=== PATIENT | male | born 1935 | race Caucasian/White ===

== ENCOUNTER → 2024-09-11 | Outpatient (CLI) | payer OTHER, SELFPAY ==
[2024-09-11 13:47] LABS: Glucose Estimated Average 131 mg/dL (80-131); Hemoglobin A1C 6.2 % Hgb (4.8-6.0)
[2024-09-11 13:49] LABS: Alanine Aminotransferase 12 U/L (10-49); Albumin, Serum 4.9 gm/dL (3.4-4.8); Alkaline Phosphatase 67 U/L (46-116); Anion Gap 10 (7-16); Aspartate Amino Transferase 15 U/L (0-34); BUN/Creatinine Ratio 20 Ratio (12-20); Bilirubin,Total 1.5 mg/dL (0.3-1.2); Blood Urea Nitrogen 28 mg/dL (9-23); Calcium 9.4 mg/dL (8.3-10.6); Calcium (Corrected) 9.4 mg/dL (8.5-10.1); Carbon Dioxide 25.1 mMol/L (20.0-31.0); Cardiac Risk Estimate 4.6 RATIO (4.0-6.7); Chloride 104 mMol/L (98-107); Cholesterol 196 mg/dL (132-200); Creatinine (Component) 1.4 mg/dL (0.6-1.3); Globulin 2.4 gm/dL (2.3-3.5); Glucose 104 mg/dL (74-106); HDL Cholesterol 43 mg/dL (40-60); LDL Cholesterol,Calculated 130 mg/dL (0-130); Osmolality,Calculated 283 (275-295); Potassium 4.3 mMol/L (3.4-5.1); Sodium 139 mMol/L (136-145); Total Protein 7.3 gm/dL (5.7-8.2); Triglycerides 116 mg/dL (30-150); eGFR 49 See Note
[2024-09-11 14:00] LABS: Creatinine MALB Rnd Ur 56 mg/dL (30-125); Microalbumin, Random Urine < 3 mg/L (0-300)
== END | disposition home or self-care (01) ==
LOC: COPL 12:16
PROVIDERS: PCP Family Medicine; Referring Provider Family Medicine; Visit Provider Family Medicine
DX: E11.40 Type 2 diabetes mellitus with diabetic neuropathy, unspecified (principal)
CPT/HCPCS: 36415; 80053; 80061; 82043; 82570; 83036

== ENCOUNTER 2025-05-27 18:44 | Inpatient (IN) | payer OTHER, MEDICARE, SELFPAY ==
[2025-05-27] VITALS (7 sets, daily range): BP systolic 101–143; BP diastolic 58–94; PULSE 85–115; RESP 14–97; TEMP 36–37; O2SAT 95–99; BMI 20.9
--- NOTE | 2025-05-27 19:08 | EKG_ITS ---
[facility] Test Date: 2025-05-27 Pat Name: ANY ROBBINS Department: Room: - Gender: Male Photograph Developer: : 1935 Requested By: Felix Campos Order Number: [id number] Reading MD: Felix Campos Measurements Intervals [place] Rate: 98 P: DC: QRS: 19 QRSD: 78 T: -42 QT: 334 QTc: 426 Interpretive Statements ATRIAL FIBRILLATION LOW QRS VOLTAGE [QRS DEFLECTION < 0.5/1.0 mV IN LIMB/CHEST LEADS] SEPTAL MYOCARDIAL INFARCTION , PROBABLY OLD [40+ ms Q WAVE IN V1/V2] Compared to ECG 04/29/2021 18:57:00 Myocardial infarct finding now present T-wave abnormality no longer present /store/S0/[id number].pdf
--- NOTE | 2025-05-27 19:09 | XR_ITS ---
Examination: CT brain head without contrast. 2-D sagittal coronal reconstructions Date and time of exam:May 27, 2025 1942 hrs. Indications: Patient fell 3 weeks ago with injury to the head followed by altered mental status CTDI: vol (mGy):53.2 DLP: (mGycm):1195 Technique: Multiple CT axial sections of the brain have been obtained, 5 mm slice thickness. Contrast has not been administered. 2-D sagittal, coronal reconstructions have been obtained Low dose protocols were performed. One or more of the following dose reduction techniques were used; automated exposure control, adjustment of the mA and/or KV according to patient size, use of iterative reconstruction technique. Findings: No significant ventricular enlargement. Intra-axial or extra-axial hemorrhage density is not seen. No mass effect or midline shift Basal cisterns are not remarkable. Fourth ventricle is midline. Cranial vault intact. Impression: Negative for acute hemorrhage, mass effect or midline shift Acute right mastoiditis Advise clinical correlation follow-up accordingly
--- NOTE | 2025-05-27 19:13 | PD.EDAMS ---
Altered Mental Status RME/HPI General Chief Complaint: Altered Mental Status Stated Complaint: AMS Time Seen by Provider: 05/27/25 19:17 Arrival date/time: 05/27/25 18:44 RME / HPI RME / HPI narrative: Mr. 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 Most history obtained from EMS patient is A&O x 1 unable to provide history, per EMS patient was found on the floor by family members, patient lives alone, family checks on him frequently and found him to be not at baseline. They did report that patient does have acute decubitus ulcers on the back, patient tachycardic, alert and oriented to self. Patient denies any pain, chest pain, shortness of breath, no lower extremity edema noted does not seem to be in any acute exacerbation of heart failure. Related Data Home Medications ?Medication ?Instructions ?Recorded ?Confirmed atorvastatin 20 mg tablet 20 mg PO QDAY 04/29/21 04/29/21 digoxin 125 mcg (0.125 mg) tablet 125 mcg PO QDAY 04/29/21 04/29/21 memantine 10 mg tablet 10 mg QDAY 04/29/21 04/29/21 metformin 1,000 mg tablet 1,000 mg PO BID 04/29/21 04/29/21 Previous Rx's ?Medication ?Instructions ?Recorded lisinopril 10 mg tablet 10 mg PO QDAY #30 tabs 05/03/21 metoprolol tartrate 50 mg tablet 50 mg PO BID #60 tabs 05/03/21 rivaroxaban 15 mg (42)-20 mg (9) See Rx Instructions PO .COMPLEX 05/03/21 tablets in a starter pack (Xarelto #51 tabs DVT-PE Treatment 30-Day Starter) Allergies Allergy/AdvReac Type Severity Reaction Status Date / Time No Known Allergies Allergy Verified 04/29/21 18:46 Review of Systems Review of Systems ROS Unobtainable: unobtainable due to mental status Past Medical History Past Medical History Comments PMH COMMENT: PMH: Positive for dementia, atrial fibrillation on Xarelto, prediabetes, hypertension, hyperlipidemia 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 Weak elderly and fragile. Conversational and non-toxic appearing. HEENT: Normocephalic, atraumatic, mucous membranes moist. Heart: Irregular rhythm and rate 105, no murmurs. Lungs: Clear to auscultation with no wheezing or crackles. Abdomen: Soft, nondistended, nontender, positive bowel sounds. ?No guarding or rebound tenderness. Neurologic: Alert and oriented x1 to self, no gross neurological deficit, and patient able to move all 4 extremities. Extremities: No edema. Significant muscle loss noted Skin: Stage III decubitus ulcer likely pressure ulcer noted near buttocks on lower back, stage I upper back. Course Course Course Narrative: 89-year-old male seen in ED 1, A&O x 1 to self most history obtained from chart review Patient noted to be tachycardic, ordered 1 L NS bolus, no signs of acute decompensated heart failure, stable on room air. Wounds examined, stage III decubitus ulcer on the lower back with some redness Workup ordered: Fingerstick blood glucose 192 CBC: WBC 13.9, RBC 3.68, hemoglobin 111.9, hematocrit 35.2, neutrophilia 11.5 neutrophil noted Coags: INR 1.1, PT 12.2, APTT 24 Blood gas: VBG pH 7.37 pCO2 35, pO2 25 CMP: Sodium 145, potassium 4.5, chloride 109, bicarb 19.6, anion gap 16, BUN 53, creatinine 1.6, GFR 41, glucose 186, osmolality 308, lactate 2.5, corrected calcium 10, phosphorus 3.4, magnesium 1.8, bilirubin 2.6, AST 45, ALT 17, alk phos 71, ammonia less than 10, troponin 0.200, Pro-Aris 0.14, TSH 2.15, free T41.45. Urine analysis shows positive nitrate, trace blood, leukocyte esterase positive, RBC 1, WBC 29, amorphous crystals present, urine sent for culture Digoxin level 0.8, blood alcohol level negative, drug screen negative CT scan of the head shows no acute hemorrhage midline shift or mass effect EKG obtained shows atrial fibrillation rate controlled 98 Sepsis alert called after WBC count was obtained, Blood Cultures sent patient given only 1 L NS bolus due to history of heart failure and will be given IV Zosyn and vancomycin x 1 Case discussed with hospitalist team hospitalist team accepted patient for admission for further workup Quality Measures Current suspected stage: severe sepsis (Given 1 L bolus h/o HfreF) Possible source: genitourinary and skin/soft tissue Blood cultures ordered: yes Antibiotic ordered: Yes Pertinent labs: 05/27/25 19:12 Lactic Acid 2.5 H mMol/L (0.4-2.0) Procalcitonin 0.14 ng/ml (0.0-0.49) sepsis Orders Category Date Time Status Bedside COVID-19 Antigen Test NOW Care 05/27/25 21:11 Active Bedside Influenza A&B Antigen Test NOW Care 05/27/25 21:11 Completed COVID-19 Screening Questionnaire NOW Care 05/27/25 21:11 Active Real Estate Development Manager Q4H START 00 Care 05/27/25 19:10 Active Continuous Pulse Oximetry NOW Care 05/27/25 19:10 Completed EKG (ED ONLY) *Do not use* NOW Care 05/27/25 19:08 Completed Fingerstick [Bedside Blood Glucose] NOW Care 05/27/25 19:04 Active Indwelling [Urinary Catheter] QS Care 05/27/25 20:06 Active Insert IV NOW Care 05/27/25 19:[address] head/brain wo con Stat Exams 05/27/25 19:09 Completed EKG (ED Only) Stat Exams 05/27/25 19:08 Draft Alcohol, Blood Medical Stat Lab 05/27/25 19:12 Completed Ammonia Stat Lab 05/27/25 19:12 Completed Blood Culture (Lab) Stat Lab 05/27/25 20:11 Received CBC Stat Lab 05/27/25 19:12 Completed Comprehensive Metabolic Panel Stat Lab 05/27/25 19:12 Completed Digoxin Stat Lab 05/27/25 19:12 Completed Drug Screen,Urine Stat Lab 05/27/25 20:16 Completed Free T4 (Free Thyroxine) Stat Lab 05/27/25 19:12 Completed INR [Prothrombin Time with INR] Stat Lab 05/27/25 19:12 Completed Lactate (Lactic Acid) Stat Lab 05/27/25 19:12 Results Magnesium Stat Lab 05/27/25 19:12 Completed PTT [Partial Thromboplastin Time] Stat Lab 05/27/25 19:12 Completed Phosphorous Stat Lab 05/27/25 19:12 Completed Procalcitonin Stat Lab 05/27/25 19:12 Completed Thyroid Stimulating Hormone Stat Lab 05/27/25 19:12 Completed Troponin I Stat Lab 05/27/25 19:12 Completed Urinalysis, C/S if Indicated Stat Lab 05/27/25 20:16 Completed Urine Culture Stat Lab 05/27/25 20:16 Received VBG [Venous Blood Gas] Stat Lab 05/27/25 19:12 Completed Piper/Tazo Inj [Zosyn Inj] 4.5 gm Med 05/27/25 20:08 Discontinued Sodium Chloride 0.9% (Pop) [NS 0.9% mini bag] 100 ml IV X1 Sodium Chloride 0.9% 1000 ml [Ns] 1,000 ml Med 05/27/25 19:13 Discontinued IV 999 mls/hr Vancomycin Inj 1,500 mg Med 05/27/25 20:29 Active Sterile Water 20 ml Sodium Chloride 0.9% Vial [NS Vial] 30 ml Sodium Chloride 0.9% 250 ml [Ns] 250 ml IV X1 Vancomycin Inj 1,500 mg Med 05/27/25 20:08 Discontinued Sterile Water 30 ml Sodium Chloride 0.9% Vial [NS Vial] 20 ml Sodium Chloride 0.9% 250 ml [Ns] 250 ml IV X1 Vital Signs Vital signs: Vital Signs Temperature 97.4 F 05/27/25 18:53 Respiratory Rate 16 05/27/25 18:53 Blood Pressure 121/82 05/27/25 18:53 Pulse Oximetry (%) 95 05/27/25 18:53 Altered Mental Status MDM Narrative MDM Narrative:: #Acute Encephalopathy, Altered Mental Status #Suspicion of Sepsis #Stage III Decubitus Ulcer Lower Back #UTI #KHOA #NSTEMI type II vs type I 89-year-old male seen in ED 1, A&O x 1 to self most history obtained from chart review Patient noted to be tachycardic, ordered 1 L NS bolus, no signs of acute decompensated heart failure, stable on room air. Wounds examined, stage III decubitus ulcer on the lower back with some redness Workup ordered: Fingerstick blood glucose 192 CBC: WBC 13.9, RBC 3.68, hemoglobin 111.9, hematocrit 35.2, neutrophilia 11.5 neutrophil noted Coags: INR 1.1, PT 12.2, APTT 24 Blood gas: VBG pH 7.37 pCO2 35, pO2 25 CMP: Sodium 145, potassium 4.5, chloride 109, bicarb 19.6, anion gap 16, BUN 53, creatinine 1.6, GFR 41, glucose 186, osmolality 308, lactate 2.5, corrected calcium 10, phosphorus 3.4, magnesium 1.8, bilirubin 2.6, AST 45, ALT 17, alk phos 71, ammonia less than 10, troponin 0.200, Pro-Aris 0.14, TSH 2.15, free T41.45. Urine analysis shows positive nitrate, trace blood, leukocyte esterase positive, RBC 1, WBC 29, amorphous crystals present, urine sent for culture Digoxin level 0.8, blood alcohol level negative, drug screen negative CT scan of the head shows no acute hemorrhage midline shift or mass effect EKG obtained shows atrial fibrillation rate controlled 98 Sepsis alert called after WBC count was obtained, Blood Cultures sent patient given only 1 L NS bolus due to history of heart failure and will be given IV Zosyn and vancomycin x 1 Case discussed with hospitalist team hospitalist team accepted patient for admission for further workup Case discussed with Attending Physician Dr. Xavier Campos MD Internal Medicine PGY-2 Disclaimer: This note was dictated by speech recognition. Minor errors in manufacturing supervisor 2nd shift may be present due to voice recognition software. 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 and acute decubitus ulcers How is presenting disease/condition affected by chronic disease/condition?: uneffected by Evaluation data The following diagnostics were reviewed and interpreted by me:: lab results, radiology exam(s) and EKG tracing(s) Lab and/or radiology exams considered but not ordered:: None Interpretation Summary: Fingerstick blood glucose 192 CBC: WBC 13.9, RBC 3.68, hemoglobin 111.9, hematocrit 35.2, neutrophilia 11.5 neutrophil noted Coags: INR 1.1, PT 12.2, APTT 24 Blood gas: VBG pH 7.37 pCO2 35, pO2 25 CMP: Sodium 145, potassium 4.5, chloride 109, bicarb 19.6, anion gap 16, BUN 53, creatinine 1.6, GFR 41, glucose 186, osmolality 308, lactate 2.5, corrected calcium 10, phosphorus 3.4, magnesium 1.8, bilirubin 2.6, AST 45, ALT 17, alk phos 71, ammonia less than 10, troponin 0.200, Pro-Aris 0.14, TSH 2.15, free T41.45. Urine analysis shows positive nitrate, trace blood, leukocyte esterase positive, RBC 1, WBC 29, amorphous crystals present, urine sent for culture Digoxin level 0.8, blood alcohol level negative, drug screen negative CT scan of the head shows no acute hemorrhage midline shift or mass effect EKG obtained shows atrial fibrillation rate controlled 98 Medications / Prescriptions Medications or Prescriptions considered but not ordered:: None Medication administrations:: Medication Administration History Vancomycin HCl 1,500 mg/Sterile Water 20 ml/ Sodium Chloride 30 ml/ Sodium Chloride 300 mls @ 120 mls/hr IV X1 ONE Stop: 05/27/25 22:37 Last Admin: 05/27/25 20:58 Dose: 120 mls/hr Documented By: DT Discontinued Medications Sodium Chloride (Ns) 1,000 mls @ 999 mls/hr IV .Q1H1M ONE Stop: 05/27/25 20:13 Last Infusion: 05/27/25 20:49 Dose: Infused Documented By: Admin: 05/27/25 19:19 Dose: 999 mls/hr Documented By: DT Piperacillin Sod/Tazobactam (Sod 4.5 gm/ Sodium Chloride) 100 mls @ 200 mls/hr IV X1 ONE; Protocol Stop: 05/27/25 20:37 Last Infusion: 05/27/25 20:58 Dose: Infused Documented By: Admin: 05/27/25 20:22 Dose: 200 mls/hr Documented By: DT Vancomycin HCl 1,500 mg/Sterile Water 30 ml/ Sodium Chloride 20 ml/ Sodium Chloride 300 mls @ 120 mls/hr IV X1 ONE Stop: 05/27/25 22:37 Last Admin: 05/27/25 20:49 Dose: Not Given Documented By: DT Non-Admin Reason: Discontinued As Above Consultations Consultation(s) initiated? (list below): No Diagnosis Differential diagnosis altered mental status: altered mental status, delirium, dementia and sepsis Most likely diagnosis given after review of the tests above:: Acute encephalopathy, Sepsis Admission Indicated Admission indicated?: indicated Admission Request Was there a request for admission?: Yes Admission Attestation Admission request attestation: Discussed case with Dr Herndon from Hospitalist service regarding admission. Discussed patients ED course, exam findings, labs, and radiology results. The Hospitalist agrees to accept the patient for admission. Disposition Plan Disposition Plan: Admit Discharge Plan Plan Patient Disposition: Admit Acute Care w/in Hospital Prescriptions/Referrals Prescriptions/Med Rec: No Action atorvastatin 20 mg Tablet 20 mg PO QDAY metformin 1,000 mg Tablet 1,000 mg PO BID digoxin 125 mcg (0.125 mg) Tablet 125 mcg PO QDAY memantine 10 mg tablet 10 mg QDAY metoprolol tartrate 50 mg tablet 50 mg PO BID Qty: 60 0RF lisinopril 10 mg tablet 10 mg PO QDAY Qty: 30 0RF Xarelto DVT-PE Treat 30d Start 15 mg (42)- 20 mg (9) tablets,dose pack See Rx Instructions .ROUTE .COMPLEX Qty: 51 0RF Rx Instructions: Take one-15 mg tablet twice daily for 21 days, then one-20 mg tablet once daily; must take with meal/food Referrals: Luis Hodge MD [Primary Care Provider, Family Practice] - In 1 week Problem List Clinical Impression: Acute encephalopathy due to infection, Sepsis, Acute UTI Patient/Caregiver Discharge Instructions Print Language: Lithuanian Stand Alone Forms: Marifer Award Info., Patient Portal Info Letter
[2025-05-27] MEDS: SODIUM CHLORIDE 0.9% 1000 ML 1,000 ML 999 ML IV (19:19)
[2025-05-27 19:24] LABS: Lactate (Lactic Acid) 2.5 mMol/L (0.4-2.0)
[2025-05-27 19:25] LABS: Base Excess, Venous -4 (-3-3); O2 Saturation, Venous 44 % (96-97); PCO2, Venous 35 mmHg (36-56); PO2, Venous 25 mmHg (15-58); pH, Venous 7.37 (7.33-7.66)
[2025-05-27 19:33] LABS: Basophils # (Auto) 0.0 Thou/mm3 (0.0-0.2); Basophils % (Auto) 0 % (0-2.5); Eosinophils # (Auto) 0.0 Thou/mm3 (0.0-0.5); Eosinophils % (Auto) 0 % (0-10); Hematocrit 35.2 % (41.0-53.0); Hemoglobin 11.9 g/dL (13.5-16.0); Immature Granulocytes Auto 0.09 Thou/mm3 (0.00-0.00); Lymphocytes # (Auto) 1.0 Thou/mm3 (1.0-4.8); Lymphocytes % (Auto) 7 % (10-50); Mean Corpuscular HGB Conc 33.8 g/dl (31.0-37.0); Mean Corpuscular Hemoglobin 32.3 pg (25.0-35.0); Mean Corpuscular Volume 96 fL (80-100); Monocytes # (Auto) 1.2 Thou/mm3 (0.0-0.8); Monocytes % (Auto) 9 % (0-12); Neutrophils # (Auto) 11.5 Thou/mm3 (1.8-7.7); Neutrophils % (Auto) 83 % (37-80); Nucleated Red Blood Cell # 0.00 Thou/mm3 (0.00-0.00); Nucleated Red Blood Cell % 0 /100 WBC (0); Platelet Count 206 Thou/mm3 (140-440); RDW Standard Deviation 53.4 fL (35.1-43.9); Red Blood Count 3.68 Miln/mm3 (4.50-5.90); White Blood Count 13.9 Thou/mm3 (3.8-10.6)
[2025-05-27 19:40] LABS: INR 1.1 (0.9-1.3); Partial Thromboplastin Time 24.0 Seconds (22.0-36.0); Prothrombin Time 12.2 Seconds (9.0-12.2)
[2025-05-27 19:43] LABS: Ammonia < 10 uMol/L (11-32)
[2025-05-27 19:57] LABS: Alanine Aminotransferase 17 U/L (10-49); Albumin, Serum 4.4 gm/dL (3.4-4.8); Albumin/Globulin Ratio 1.6 (1.2-2.2); Alcohol, Blood Medical < 3.0 mg/dL (0-10.0); Alkaline Phosphatase 71 U/L (46-116); Anion Gap 16 (7-16); Aspartate Amino Transferase 45 U/L (0-34); BUN/Creatinine Ratio 33 Ratio (12-20); Bilirubin,Total 2.6 mg/dL (0.3-1.2); Blood Urea Nitrogen 53 mg/dL (9-23); Calcium 10.0 mg/dL (8.3-10.6); Calcium (Corrected) 10.0 mg/dL (8.5-10.1); Carbon Dioxide 19.6 mMol/L (20.0-31.0); Chloride 109 mMol/L (98-107); Creatinine (Component) 1.6 mg/dL (0.6-1.3); Digoxin 0.8 ng/mL (0.8-2.0); Estimated Creatinine Clearance 31.3 mL/min (>60); Free T4 (Free Thyroxine) 1.45 ng/dL (0.89-1.76); Globulin 2.7 gm/dL (2.3-3.5); Glucose 186 mg/dL (74-106); Magnesium 1.8 mg/dL (1.6-2.6); Osmolality,Calculated 308 (275-295); Phosphorous 3.4 mg/dL (2.4-5.1); Potassium 4.5 mMol/L (3.4-5.1); Procalcitonin 0.14 ng/ml (0.0-0.49); Sodium 145 mMol/L (136-145); Thyroid Stimulating Hormone 2.15 uIU/mL (0.55-4.78); Total Protein 7.1 gm/dL (5.7-8.2); eGFR 41 See Note
[2025-05-27 19:59] LABS: Troponin I 0.200 ng/mL (0.0-0.045)
[2025-05-27] MEDS: PIPER/TAZO INJ 4.5 GM in SODIUM CHLORIDE 0.9% (POP) 100 ML IV (20:22)
[2025-05-27 20:23] LABS: Collection Type, Urine Clean Catch; Squamous Epithelial Cell,Urine 0 /hpf (0-5)
[2025-05-27 20:33] LABS: Amorphous Crystals,Urine Present (Absent); Bilirubin,Urine Negative (Negative); Blood,Urine Trace (Negative); Clarity,Urine Clear (Clear/Hazy); Color,Urine Lt-Yellow (Lt Yel-Yel); Glucose, Urine Negative (Negative); Ketones,Urine Negative (Negative); Leukocyte Esterase,Urine Positive (Negative); Nitrite,Urine Positive (Negative); PH,Urine 5.5 (5.0-7.0); Protein,Urine Negative (Neg - Trace); RBC,Urine 1 /hpf (0-3); Specific Gravity,Urine 1.018 (1.001-1.035); Urobilinogen,Urine Negative mg/dL (0.0-1.0); WBC,Urine 29 /hpf (0-5)
[2025-05-27 20:45] LABS: Culture Indicated,Urine Yes
[2025-05-27] MEDS: SODIUM CHLORIDE IV (20:58)
[2025-05-27] MEDS: VANCOMYCIN IV (20:58)
[2025-05-27] MEDS: STERILE WATER IV (20:58)
[2025-05-27] MEDS: [UNRECOGNIZED DRUG - OTHER] IV (20:58)
[2025-05-27 21:37] LABS: Amphetamine/Methamp Scrn,U Negative (Negative); Barbiturate Screen,Urine Negative (Negative); Benzodiazepines Screen,Urine Negative (Negative); Benzoylecgonine Screen, Ur Negative (Negative); Fentanyl Screen,Urine Negative (Negative); Opiate Screen,Urine Negative (Negative); THC Screen,Urine Negative (Negative)
[2025-05-27 22:20] LABS: Reflex Lactate? Y
--- NOTE | 2025-05-27 22:33 | PD.RESHP ---
Documentation for date of: 05/27/25 [facility] History of Present Illness Chief complaint: AMS History of present illness: Mr. 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 Most history obtained from EMS patient is A&O x 1 unable to provide history, per EMS patient was found on the floor by family members, patient lives alone, family checks on him frequently and found him to be not at baseline. They did report that patient does have acute decubitus ulcers on the back. The patient was unable to provide a clear history and appeared confused when asked about the events leading up to the hospital arrival. Patient tachycardic, alert and oriented to self. Patient denies any pain, chest pain, shortness of breath, dizziness, dysuria, urinary frequency. No lower extremity edema noted does not seem to be in any acute exacerbation of heart failure. I attempted to contact the patient's son 3 times, but received no response. I left a voice message. ED Course: -Initial vitals were BP 131/82, pulse 115, respiratory 16, temp 97.4, O2 sat 95% on room air. -Labs significant for WBC 13.9, Hgb 11.9, HCT 35.2.CMP: Na 145, K 4.5, chloride 109, bicarb 19.6, anion gap 16, BUN 53, creatinine 1.6, GFR 41, glucose 186, osmolality 308, lactate 2.5, corrected calcium 10, phosphorus 3.4, magnesium 1.8, bilirubin 2.6, AST 45, ALT 17, alk phos 71, ammonia less than 10, troponin 0.200, Pro-Aris 0.14, TSH 2.15, free T41.45. UA positive for nitrite, leukocyte esterase, WBC 29, amorphous crystals -Imaging included a CT showed acute right mastoiditis, with no head hemorrhage. -In the ED, patient was given 1 L NS, Zosyn 4.5gm x1, vancomycin x 1 -Patient was admitted for acute encephalopathy secondary to evaluation and management. Review of Systems Review of systems otherwise negative except what is mentioned above. Past Medical History: Mentioned above Family History: Unable to obtain Surgical History: Unable to obtain Social History: Denies history of smoking, denies recreational drug use, endorses occasional alcohol intake Current Medications: Pending med rec Allergies: No known drug allergies Exam Vital Signs Temp Pulse Resp BP Pulse Ox O2 Del Method 98.6 F 88 14 106/67 99 Room Air 05/27/25 22:25 05/27/25 22:25 05/27/25 22:25 05/27/25 22:25 05/27/25 22:05/27/25 22:25 Narrative Exam General: Alert, no acute distress.Conversational and non-toxic appearing. Skin: Shivering, dry, intact. No rash or ecchymoses. Head: Minimally tender to palpation over the mastoid area, without swelling or erythema. Normocephalic, atraumatic. Eye: Normal conjunctiva, PERRL. Throat: Oral mucosa moist. No obvious lesions in oropharynx. Cardiovascular: Regular rate and rhythm, no murmur, +S1/S2. Respiratory: Lungs are clear to auscultation, respirations unlabored, no crackles, no wheezing. Gastrointestinal: Soft, nontender, non-distended. No guarding or rebound tenderness. Extremities: Healed upper back ulcer, sacral decubitis stage II, no edema, no cyanosis, no clubbing. Neuro: Alert and oriented x1.No focal deficits observed. Conversant, moving all extremities. No overt cerebellar signs/incoordination. Psychiatric: Cooperative, appropriate affect Results: Labs 05/28/25 04:35 05/28/25 04:35 Labs: Short CBC 05/27/25 Range/Units 19:12 WBC 13.9 H (3.8-10.6) Thou/mm3 Hgb 11.9 L (13.5-16.0) g/dL Hct 35.2 L (41.0-53.0) % Plt Count 206 (140-440) Thou/mm3 BMP 05/27/25 19:12 Sodium 145 Potassium 4.5 Chloride 109 H Carbon Dioxide 19.6 L BUN 53 H Creatinine 1.6 H Glucose 186 H Calcium 10.0 Cardiac Enzymes 05/27/25 Range/Units 19:12 Troponin I 0.200 H* (0.0-0.045) ng/mL Liver Function 05/27/25 Range/Units 19:12 Total Bilirubin 2.6 H (0.3-1.2) mg/dL AST 45 H (0-34) U/L ALT 17 (10-49) U/L Alkaline Phosphatase 71 (46-116) U/L Albumin 4.4 (3.4-4.8) gm/dL Urine 05/27/25 Range/Units 20:16 Urine Color Lt-Yellow (Lt Yel-Yel) Urine Clarity Clear (Clear/Hazy) Urine pH 5.5 (5.0-7.0) Ur Specific [place] 1.018 (1.001-1.035) Urine Protein Negative (Neg - Trace) Urine Glucose (UA) Negative (Negative) ABG Interpretation ABG results: 05/27/25 19:12 VBG pH 7.37 VBG pCO2 35 L VBG pO2 25 VBG Base Excess -4 L Quality Measures Quality Measures sepsis Current suspected stage: ruled out Possible source: genitourinary and skin/soft tissue Blood cultures ordered: yes Antibiotic ordered: Yes Advance care planning discussed with:: other Medications Home Medications and Allergies Home Medications ?Medication ?Instructions ?Recorded ?Confirmed ?Type atorvastatin 20 mg tablet 20 mg PO QDAY 04/29/21 05/28/25 History digoxin 125 mcg (0.125 mg) tablet 125 mcg PO QDAY 04/29/21 05/28/25 History memantine 10 mg tablet 10 mg PO BID 04/29/21 05/28/25 History metformin 1,000 mg tablet 500 mg PO BID 04/29/21 05/28/25 History metformin 500 mg tablet 500 mg PO BID 05/28/25 05/28/25 History Allergies Allergy/AdvReac Type Severity Reaction Status Date / Time No Known Allergies Allergy Verified 04/29/21 18:46 Visit Medications Vancomycin HCl 1,500 mg/Sterile Water 20 ml/ Sodium Chloride 30 ml/ Sodium Chloride 300 mls @ 120 mls/hr IV X1 ONE Stop: 05/27/25 22:37 Last Admin: 05/27/25 20:58 Dose: 120 mls/hr Discontinued Medications Sodium Chloride (Ns) 1,000 mls @ 999 mls/hr IV .Q1H1M ONE Stop: 05/27/25 20:13 Last Infusion: 05/27/25 20:49 Dose: Infused Piperacillin Sod/Tazobactam (Sod 4.5 gm/ Sodium Chloride) 100 mls @ 200 mls/hr IV X1 ONE; Protocol Stop: 05/27/25 20:37 Last Infusion: 05/27/25 20:58 Dose: Infused Vancomycin HCl 1,500 mg/Sterile Water 30 ml/ Sodium Chloride 20 ml/ Sodium Chloride 300 mls @ 120 mls/hr IV X1 ONE Stop: 05/27/25 22:37 Last Admin: 05/27/25 20:49 Dose: Not Given Assessment & Plan Plan Mr. 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 Admitted for acute encephalopathy secondary to sepsis and UTI. #Acute encephalopathy 2/2 #Suspicion of Sepsis #Stage II Decubitus Ulcer Lower Back #UTI DDx: infections vs metabolic vs drug/toxin. Acute encephalopathy is likely due to to infection from the decubitus ulcers and urinary tract infection causing patient poor mentation. Pt baseline, unknown at this time. Lactate 2.5 improved to 1.8 after IV hydration. Suspicion for sepsis as patient tachycardic, leukocytosis, and signs of endorgan manage KHOA and elevated troponin. qsofa score 2. Meet SIRS criteria with 2/4, tachycardic and leukocytosis WBC 13.9. UA positive for positive for UTI nitrite, leukocyte esterase, WBC 29, amorphous crystals. UTOX negative ruling out drug /toxin cause of altered mentation. In the ED received vancomycin x1 and Zosyn x1 Influenza A, B and COVID-19 was negative Adequate resuscitated with 2L NS boluses -Started IV ceftriaxone -Urine culture, pending -Blood culture, pending -Wound consult/care #Acute mastoiditis On CT head noted acute right mastoiditis. On examination minimally tender to palpation over the mastoid area. - antibiotics above #Elevated troponin #NSTEMI type II vs type I #Hx of HrEF (EF 40%) Patient reports no chest pain but was tachycardic. Low suspicion for NSTEMI, elevated troponin likely to demand ischemia in the setting of infection. ECHO 05/01/2021: HFrEF EF40% Trace mitral and trace tricuspid regurgitation noted. EKG: A-fib with a rate of 98 and QTc 426 Trop 0.200>0.225 - Trend troponin - Cardiology consulted, recommendation appreciated - Keep K > 4 and Mg > 2 #Atrial fibrillation, rate controlled #Hx DVT/PE Patient has a history of atrial fibrillation on digoxin 125 and Xarelto EKG shows A-fib with a rate of 98 and QTc 426 Digoxin level 0.8 CHADsVAS score 6 - 13.6% risk of stroke/TIA/systemic embolism HAS BLED score 4 Plan - Resumed home digoxin 0.125 mg p.o. - Gave Xarelto 15mg p.o. X1 (please confirm dose with pharmacy) - Will monitor telemetry - Keep K > 4 and Mg > 2 - Hold home metoprolol for now as BP is soft #KHOA #Lactic acidosis KHOA in the setting of ongoing encephalopathy and dehydration. CR 1.6 (baseline 1.1), GFR 41, BUN 53 - Avoid nephrotoxins - Monitor renal panel - Renally dosed medications #Hyperbilirubinemia #Elevated AST T. bili2.6 and AST 45.ALT 17 (within normal limit) likely secondary to sepsis - Continue to monitor CMP #Hx Pre-diabetes On admission A1c 6.2 and glucose 186. -Glucose Accu-Cheks -Insulin sliding scale - Consider diabetic education after improve mentation #Hypertension On home lisinopril 10 mg and metoprolol tartrate 50 mg - Med rec pending - Hold for now as BP is soft #Normocytic anemia, chronic On admission hemoglobin 9.8, hematocrit 35.2 -Continue to monitor H&H #?Hx dementia Home memantine 10 mg daily -Pending med rec -Patient lives alone but he is only alert to name -Social service referal Hospital management: Lines: peripheral IV Diet: cardiac DVT prophylaxis:Xarelto Disposition: tele for encephalopathy/sepsis, UTI CODE STATUS: Full code Patient seen and assessed under supervision of attending physician Dr.Alhalaibeh Irene Herndon MD PGY-1, Internal Medicine Please note: this document was transcribed using voice recognition technology; minor inaccuracies may be present. Attending Provider Attestation/Addendum After examination of the patient and review of the clinical data I feel that this patient needs admission to the hospital for further treatment/evaluation. Plan of care discussed with patient and is in agreement. I Allie Parmar MD, attest that I was physically present for bergman portions of evaluation, and examined patient, labs and imagings and plan of care were discussed with IM residents team, and I agree with the findings and plans documented above.
[2025-05-27 23:01] LABS: Lactic Acid, 3 HR 1.8 mMol/L (0.4-2.0)
[2025-05-27 23:26] LABS: Glucose Estimated Average 131 mg/dL (80-131); Hemoglobin A1C 6.2 % Hgb (4.8-6.0)
[2025-05-27] MEDS: cefTRIAXone/D5w 1gm IV premix 1 GM/50 ML BAG IV (23:34)
[2025-05-27] MEDS: SODIUM CHLORIDE 0.9% 1000 ML 1,000 ML 100 ML IV (23:35)
[2025-05-27] MEDS: Magnesium Sulfate 4 GM Ivpb 4 GM/50 ML BAG IV (23:57)
[2025-05-28] VITALS (8 sets, daily range): BP systolic 96–120; BP diastolic 52–78; PULSE 75–95; RESP 14–96; TEMP 36.1–36.9; O2SAT 91–99; BMI 11.0
--- NOTE | 2025-05-28 00:32 | ECHO_ITS ---
Transthoracic Echo Report Ht (in): 71 Wt (lb): 150 Exam Location: Echo Lab Status: Inpatient Bond Manager: Grover Self Indications: Procedure Performed: BP: 120 / 76 HR: 84 MEASUREMENTS (Male / Female) Normal Values 2D ECHO LV Diastolic Diameter PLAX 3.9 cm 4.2 - 5.9 / 3.9 - 5.3 cm LV Systolic Diameter PLAX 3.0 cm IVS Diastolic Thickness 0.9 cm 0.6 - 1.0 / 0.6 - 0.9 cm LVPW Diastolic Thickness 1.2 cm 0.6 - 1.0 / 0.6 - 0.9 cm LV Relative Wall Thickness 0.5 LVOT Diameter 1.9 cm DOPPLER AV Peak Velocity 106.6 cm/s AV Peak Gradient 4.5 mmHg AV Mean Gradient 2.0 mmHg AV Velocity Time Integral 17.4 cm LVOT Peak Velocity 51.2 cm/s LVOT Peak Gradient 1.0 mmHg LVOT Velocity Time Integral 8.0 cm LVOT Cardiac Index 1040.4 cm?/min?m? AV Area Cont Eq vti 1.3 cm? AV Area Cont Eq pk 1.4 cm? MV Area PHT 4.2 cm? Mitral E Point Velocity 40.3 cm/s Mitral A Point Velocity 46.3 cm/s Mitral E to A Ratio 0.9 LV E' Lateral Velocity 11.0 cm/s Mitral E to LV E' Lateral Ratio 3.7 LV E' Septal Velocity 7.1 cm/s Mitral E to LV E' Septal Ratio 5.7 TR Peak Velocity 168.3 cm/s TR Peak Gradient 11.3 mmHg PV Peak Velocity 89.6 cm/s PV Peak Gradient 3.2 mmHg FINDINGS Left Ventricle Normal left ventricular size, wall thickness, systolic function with no obvious regional wall motion abnormalities.Indeterminat diastology due to A-FibThe ejection fraction is visually estimated at 40--45%. Right Ventricle The right ventricle is normal in size and systolic function. The estimated right ventricular systolic pressure, 21 mmHg with RAP 8 Left Atrium The left atrial cavity size is severely increased. Right Atrium The right atrial cavity size is severely increased. Atrial Septum The interatrial septum appears normal with no evidence of a shunt. Aorta The aorta is normal by two-dimensional, color flow and Doppler interrogation. Mitral Valve MAC and mild mitral regurgitation. Aortic Valve The aortic valve is trileaflet and normal by two-dimensional, color flow and Doppler interrogation. There is no significant aortic valve regurgitation. Tricuspid Valve The tricuspid valve is normal by two-dimensional, color flow and Doppler interrogation. There is mild tricuspid valve regurgitation. Pulmonic Valve The pulmonic valve is not well visualized. There is no significant pulmonic valve regurgitation. Vessels The pulmonary artery appears normal. The inferior vena cava not well visualized. Pericardium The pericardium is normal by two-dimensional imaging. There is no significant pericardial effusion. Other Findings TDS due to habitus/patient unable to lie on left side CONCLUSIONS Indication: HFreF, Afib Normal left ventricular size and function. Estimated EF of 55-60%. Indeterminate diastolic function due to A-fib. Normal Right ventricular size and function. RVSP 25mmHg with RAP 8 MAC and mild mitral regurgitation. Mild TR. Severe dilated LA and RA. IVC not well visualized. Yassine Cobb (Electronically Signed) Final Date: 28 May 2025 14:46
[2025-05-28] MEDS: RIVAROXABAN 10 MG TABLET 15 MG PO (02:24)
[2025-05-28 02:43] LABS: Troponin I 0.225 ng/mL (0.0-0.045)
[2025-05-28 05:26] LABS: Basophils # (Auto) 0.0 Thou/mm3 (0.0-0.2); Basophils % (Auto) 0 % (0-2.5); Eosinophils # (Auto) 0.0 Thou/mm3 (0.0-0.5); Eosinophils % (Auto) 0 % (0-10); Hematocrit 31.9 % (41.0-53.0); Hemoglobin 10.8 g/dL (13.5-16.0); Immature Granulocytes Auto 0.06 Thou/mm3 (0.00-0.00); Lymphocytes # (Auto) 1.0 Thou/mm3 (1.0-4.8); Lymphocytes % (Auto) 9 % (10-50); Mean Corpuscular HGB Conc 33.9 g/dl (31.0-37.0); Mean Corpuscular Hemoglobin 33.2 pg (25.0-35.0); Mean Corpuscular Volume 98 fL (80-100); Monocytes # (Auto) 1.0 Thou/mm3 (0.0-0.8); Monocytes % (Auto) 9 % (0-12); Neutrophils # (Auto) 8.9 Thou/mm3 (1.8-7.7); Neutrophils % (Auto) 81 % (37-80); Nucleated Red Blood Cell # 0.00 Thou/mm3 (0.00-0.00); Nucleated Red Blood Cell % 0 /100 WBC (0); Platelet Count 151 Thou/mm3 (140-440); RDW Standard Deviation 54.8 fL (35.1-43.9); Red Blood Count 3.25 Miln/mm3 (4.50-5.90); White Blood Count 11.1 Thou/mm3 (3.8-10.6)
[2025-05-28 06:10] LABS: Alanine Aminotransferase 15 U/L (10-49); Albumin, Serum 3.7 gm/dL (3.4-4.8); Albumin/Globulin Ratio 1.7 (1.2-2.2); Alkaline Phosphatase 58 U/L (46-116); Anion Gap 12 (7-16); Aspartate Amino Transferase 43 U/L (0-34); BUN/Creatinine Ratio 38 Ratio (12-20); Bilirubin,Total 2.2 mg/dL (0.3-1.2); Blood Urea Nitrogen 50 mg/dL (9-23); Calcium 9.1 mg/dL (8.3-10.6); Calcium (Corrected) 9.3 mg/dL (8.5-10.1); Carbon Dioxide 21.6 mMol/L (20.0-31.0); Chloride 113 mMol/L (98-107); Creatinine (Component) 1.3 mg/dL (0.6-1.3); Estimated Creatinine Clearance 38.5 mL/min (>60); Globulin 2.2 gm/dL (2.3-3.5); Glucose 169 mg/dL (74-106); Magnesium 2.5 mg/dL (1.6-2.6); Osmolality,Calculated 309 (275-295); Phosphorous 3.1 mg/dL (2.4-5.1); Potassium 3.6 mMol/L (3.4-5.1); Sodium 147 mMol/L (136-145); Total Protein 5.9 gm/dL (5.7-8.2); eGFR 53 See Note
[2025-05-28] MEDS: DIGOXIN 0.125 MG TABLET PO (09:02)
[2025-05-28] MEDS: cefTRIAXone/D5w 1gm IV premix 1 GM/50 ML BAG IV (09:02)
[2025-05-28] MEDS: RIVAROXABAN 2.5 MG TABLET 5 MG PO (09:03)
--- NOTE | 2025-05-28 09:47 | PC.SS ---
SS follow up note; Patient is pending Cultures and Echo.
[2025-05-28 11:02] LABS: Troponin I 0.192 ng/mL (0.0-0.045)
--- NOTE | 2025-05-28 11:55 | PC.SS ---
Patient Duke Rosen is a 89 Year old male admitted for AMS/KHOA. SS met with patient' at bedside, however patient was confused at the time. SS attempted to contact patient's son, Sabino Colby however did not answer, SS left voicemail with contact number. SS contacted patient's other son, Mode Colby and he informed SS that patient lives alone and prior to being admitted he did not utilize any source of DME however patient was struggling to provide his ADL's. Mode informed SS that patient's son Sabino Colyb is patient's POA, and person to notify [phone]. Patient's PCP is Luis Hodge. Patient's son informed SS that at the time they do not know the patient's discharge plan, and inquired that PT evaluate patient before deciding if patient could discharge back home. SS informed patient's son that SS would inform Dr's to input PT order. At the time Discharge plan is pending. Discharge plan: Pending Next of kin: Sabino Colby [phone].
--- NOTE | 2025-05-28 11:58 | ESPR_ITS ---
<Statement entered by Yosef Dow MD - 06/03/25 17:37> I reviewed above note and agree with findings and plans. I have also personally examined the patient with medicine team and went over assessment and plan with medical team including software developer intern and resident physician. <Statement entered by Michelle Mendiola MD - 05/29/25 07:38> I discussed with and supervised the software developer intern physician who took care of this patient. I personally saw and examined the patient and discussed the assessment and plan with the entire medicine team, including my attending Dr. Dow, I agree with most of the assessment and plan as documented below Michelle Mendiola M.D. 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 Patient examined at bedside and is awake, alert, but only oriented to person. He is pleasently demented but a poor historian as a result. He cannot explain why he's here but denies extensive ROS including fever, chills, cough, chest pain, shortness of breath, nausea, vomiting, abdominal pain, dysuria, and new leg swelling/pain. Fluid resuscitation with 2L in the ED improved KHOA. Though he became slighltly hypernatremic at 147. 1L of D5W at 75cc/hr was started for correction/rehydration. UA was positive with nitrites, leuk esterase, and 29 WBCs. CBC demonstrated WBC of 11. Ceftriaxone continued CT head done in the ED showed incidental finding of acute right mastoiditis. This was discussed with the radiologist who states this is likely not responsible for his presentation at this point based on it's acuity. PT and speech evals ordered. Exam Vital Signs Temp Pulse Resp BP Pulse Ox O2 Del Method 97.0 F 78 18 114/78 96 Room Air 05/28/25 08:00 05/28/25 11:08 05/28/25 11:08 05/28/25 09:02 05/28/25 08:00 05/28/25 08:00 Narrative Exam General: Elderly patient, pleasantly demented no acute distress, frail and lean appearing. HEENT: Mucosa moist. Pupils are equal and reactive to light bilaterally Cardiovascular: Normal S1 and S2. normal rate, irregular rhythm. No murmur appreciated Respiratory: Clear to auscultation bilaterally without wheezes or crackles. Abdomen: Soft, nontender, not distended, Skin: Dry, no rashes or bruising Musculoskeletal: No gross injuries. Able to move all 4 extremities. Non edematous lower extremities. Two pink pads placed along the sacrum and upper back. Both without saturation. Neuro: Alert and oriented x1 to self. No focal neuro deficits. Objective Labs 05/30/25 05:10 05/30/25 05:10 Labs: Laboratory Results - last 24 hr 05/27/25 05/27/25 05/27/25 19:12 19:17 20:16 WBC 13.9 H RBC 3.68 L Hgb 11.9 L Hct 35.2 L MCV 96 MCH 32.3 MCHC 33.8 RDW Std Deviation 53.4 H Plt Count 206 Neut % (Auto) 83 H Lymph % (Auto) 7 L Lawrence % (Auto) 9 Eos % (Auto) 0 Baso % (Auto) 0 Neut # (Auto) 11.5 H Lymph # (Auto) 1.0 Lawrence # (Auto) 1.2 H Eos # (Auto) 0.0 Baso # (Auto) 0.0 Immature Gran # (Auto) 0.09 H Absolute Nucleated RBC 0.00 Immature Gran % 1 H Nucleated RBC % 0 PT 12.2 INR 1.1 APTT 24.0 VBG pH 7.37 VBG pCO2 35 L VBG pO2 25 VBG O2 Sat (Danilo) 44 L VBG Base Excess -4 L Sodium 145 Potassium 4.5 Chloride 109 H Carbon Dioxide 19.6 L Anion Gap 16 BUN 53 H Creatinine 1.6 H Estim Creat Clear Calc 31.3 L eGFR 41 L BUN/Creatinine Ratio 33 H Glucose [address] Glu mg/dL 131 Hemoglobin A1c 6.2 H Calculated Osmolality 308 H Lactic Acid 2.5 H Calcium 10.0 Corrected Calcium 10.0 Phosphorus 3.4 Magnesium 1.8 Total Bilirubin 2.6 H AST 45 H ALT 17 Alkaline Phosphatase 71 Ammonia < 10 L Troponin I 0.200 H* Total Protein 7.1 Albumin 4.4 Globulin 2.7 Albumin/Globulin Ratio 1.6 Procalcitonin 0.14 TSH 2.15 Free T4 1.45 Ur Collection Type Clean Catch Urine Color Lt-Yellow Urine Clarity Clear Urine pH 5.5 Ur Specific [place] 1.018 Urine Protein Negative Urine Glucose (UA) Negative Urine Ketones Negative Urine Blood Trace Urine Nitrite Positive Urine Bilirubin Negative Urine Urobilinogen (Auto) Negative Ur Leukocyte Esterase Positive Urine RBC 1 Urine WBC 29 H Ur Squamous Epith Cells 0 Amorphous Crystals Present A Urine Bacteria None Ur Culture Indicated? Yes Digoxin 0.8 Urine Opiates Screen Negative Urine Fentanyl Screen Negative Ur Barbiturates Screen Negative U Amphetamin/Meth Scrn Negative U Benzodiazepines Scrn Negative U Cocaine Metab Screen Negative U Marijuana (THC) Screen Negative Ethyl Alcohol < 3.0 05/27/25 05/28/25 05/28/25 22:45 02:02 04:35 WBC 11.1 H RBC 3.25 L Hgb 10.8 L Hct 31.9 L MCV 98 MCH 33.2 MCHC 33.9 RDW Std Deviation 54.8 H Plt Count 151 D Neut % (Auto) 81 H Lymph % (Auto) 9 L Lawrence % (Auto) 9 Eos % (Auto) 0 Baso % (Auto) 0 Neut # (Auto) 8.9 H Lymph # (Auto) 1.0 Lawrence # (Auto) 1.0 H Eos # (Auto) 0.0 Baso # (Auto) 0.0 Immature Gran # (Auto) 0.06 H Absolute Nucleated RBC 0.00 Immature Gran % 1 H Nucleated RBC % 0 PT INR APTT VBG pH VBG pCO2 VBG pO2 VBG O2 Sat (Danilo) VBG Base Excess Sodium 147 H Potassium 3.6 D Chloride 113 H Carbon Dioxide 21.6 Anion Gap 12 BUN 50 H Creatinine 1.3 Estim Creat Clear Calc 38.5 L eGFR 53 L BUN/Creatinine Ratio 38 H Glucose [address] Glu mg/dL Hemoglobin A1c Calculated Osmolality 309 H Lactic Acid 1.8 Calcium 9.1 Corrected Calcium 9.3 Phosphorus 3.1 Magnesium 2.5 Total Bilirubin 2.2 H AST 43 H ALT 15 Alkaline Phosphatase 58 Ammonia Troponin I 0.225 H* Total Protein 5.9 Albumin 3.7 D Globulin 2.2 L Albumin/Globulin Ratio 1.7 Procalcitonin TSH Free T4 Ur Collection Type Urine Color Urine Clarity Urine pH Ur Specific [place] Urine Protein Urine Glucose (UA) Urine Ketones Urine Blood Urine Nitrite Urine Bilirubin Urine Urobilinogen (Auto) Ur Leukocyte Esterase Urine RBC Urine WBC Ur Squamous Epith Cells Amorphous Crystals Urine Bacteria Ur Culture Indicated? Digoxin Urine Opiates Screen Urine Fentanyl Screen Ur Barbiturates Screen U Amphetamin/Meth Scrn U Benzodiazepines Scrn U Cocaine Metab Screen U Marijuana (THC) Screen Ethyl Alcohol 05/28/25 09:50 WBC RBC Hgb Hct MCV MCH MCHC RDW Std Deviation Plt Count Neut % (Auto) Lymph % (Auto) Lawrence % (Auto) Eos % (Auto) Baso % (Auto) Neut # (Auto) Lymph # (Auto) Lawrence # (Auto) Eos # (Auto) Baso # (Auto) Immature Gran # (Auto) Absolute Nucleated RBC Immature Gran % Nucleated RBC % PT INR APTT VBG pH VBG pCO2 VBG pO2 VBG O2 Sat (Danilo) VBG Base Excess Sodium Potassium Chloride Carbon Dioxide Anion Gap BUN Creatinine Estim Creat Clear Calc eGFR BUN/Creatinine Ratio Glucose Estimated Ave Glu mg/dL Hemoglobin A1c Calculated Osmolality Lactic Acid Calcium Corrected Calcium Phosphorus Magnesium Total Bilirubin AST ALT Alkaline Phosphatase Ammonia Troponin I 0.192 H* Total Protein Albumin Globulin Albumin/Globulin Ratio Procalcitonin TSH Free T4 Ur Collection Type Urine Color Urine Clarity Urine pH Ur Specific [place] Urine Protein Urine Glucose (UA) Urine Ketones Urine Blood Urine Nitrite Urine Bilirubin Urine Urobilinogen (Auto) Ur Leukocyte Esterase Urine RBC Urine WBC Ur Squamous Epith Cells Amorphous Crystals Urine Bacteria Ur Culture Indicated? Digoxin Urine Opiates Screen Urine Fentanyl Screen Ur Barbiturates Screen U Amphetamin/Meth Scrn U Benzodiazepines Scrn U Cocaine Metab Screen U Marijuana (THC) Screen Ethyl Alcohol ABG Interpretation ABG results: 05/27/25 19:12 VBG pH 7.37 VBG pCO2 35 L VBG pO2 25 VBG Base Excess -4 L Quality Measures Quality Measures sepsis Current suspected stage: ruled out Possible source: genitourinary and skin/soft tissue Blood cultures ordered: yes Antibiotic ordered: Yes Advance care planning discussed with:: other Assessment & Plan Assessment Current Active Medications: Generic Name Dose Route Start Last Admin Trade Name Freq PRN Reason Stop Dose Admin Dextrose 25 ml 05/27/25 22:48 Dextrose 50%-Water Inj 50 Ml Syringe IV 06/26/25 22:47 Q15MIN PRN BG 50-70 responsive npo pt Dextrose 50 ml 05/27/25 22:48 Dextrose 50%-Water Inj 50 Ml Syringe IV 06/26/25 22:47 Q15MIN PRN BG <50 OR BG <70 & pt unresponsive Digoxin 0.125 mg 05/28/25 09:00 05/28/25 09:02 Digoxin 0.125 Mg Tablet PO 06/27/25 08:59 0.125 mg QDAY JUNIE Administration Glucagon 1 mg 05/27/25 22:48 Glucagon Inj 1 Mg Vial IM Q15MIN PRN BG <70, and no IV access Ceftriaxone Sodium/Dextrose 1 gm in 50 mls @ 100 mls/hr 05/27/25 23:09 05/28/25 09:02 Rocephin/D5w 1gm Iv Premix IV 06/03/25 23:08 100 mls/hr QDAY JUNEI Administration Dextrose 500 mls @ 75 mls/hr 05/28/25 11:45 D5w IV 05/29/25 01:04 .Q6H40M [facility] Insulin Human Lispro 0 unit 05/28/25 07:30 05/28/25 09:02 Insulin Lispro (Admelog) 1 Unit/0.01 Ml Unit SC 06/27/25 07:29 Not Given AC [facility] Protocol Rivaroxaban 20 mg 05/29/25 09:00 Rivaroxaban 10 Mg Tablet PO 06/19/25 08:59 QDAY [facility] Plan This is an 89 yom with a h/o of dimentia, a-fib on rivaroxaban, HFrEF last EF 40% in 2020, pre DM with A1c 6.2 who was found on the floor by family members, admitted for workup of acute encephalopathy. #Acute Encephalopathy #UTI #Hypernatremia Patient alert but only oriented to self. Unclear if this is his baseline. CT head negative for structural causes but acute mastoiditis was noted on the read, see below. UA was positive for leukocyte esterase, nitrates, and 29 WBCs. Additionally, he was found to have Na 147, BUN, 50, Cr 1.3, with a GFR of 38, slight elevation of T.bili 2.2, AST 43, with normal ALT and ALP of 15 and 58. 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 These metabolic derangements are likely a result of dehydration. Sepsis considered given patient's initial hypotension, sofa score 5. Clinically, the patient does not appear to be undergoing end organ dysfunction upon examination. Will need to assess baseline with family members. -Ceftriaxone started on 05/27. -1L D5w at 75 cc/hr -Daily CMP to moniter for improvement of electrolyte derangements listed above. #possible acute Mastoiditis This is an incidental finding on CT non-con of the head. The patient denies fevers, or head pain, the mastoid processes are non-tender to palpation. He remains afebrile, WBC marginally elevatedat 11, but likely secondary to UTI. Clinically, this patient does not appear to have mastoiditis. - Will moniter clinically. - Consider MRI non-con if patient fails to improve. #Hyperbilirubinemia #Elevated AST Slight elevation of T.bili 2.2, AST 43, with normal ALT and ALP of 15 and 58. Patient denies abdominal pain or tenderness on exam. Cholestatic injury considered but is less likely given lack of ALP elevation. Most likely resultant of poor oral intake. - Continue to monitor CMP - Consider abdominal US if failure to improve. #KHOA KHOA in the setting of ongoing encephalopathy and dehydration. CR 1.6 on admission (baseline 1.1), GFR 41, BUN 53. Repeat CMP after fluid resuscition - Avoid nephrotoxins - Monitor renal panel - Renally dosed medications #NSTEMI type II #Hx of HrEF (EF 40%) Patient reports no chest pain but was tachycardic. Troponin downtrending with fluid resuscitation and return to normal HR. 0.225 to 0.192 to 0.166. Given evidence of urinary infection, dehydration, and improvement with fluids and antibiotics, this is consistent with NSTEMI type II. Cardiology in agreement. ECHO 05/01/2021: HFrEF EF40% Trace mitral and trace tricuspid regurgitation noted. EKG: A-fib with a rate of 98 and QTc 426 -Pending up to date ECHO - Keep K > 4 and Mg > 2 #Atrial fibrillation, rate controlled #Hx DVT/PE Patient has a history of atrial fibrillation on digoxin 125 and Xarelto EKG shows A-fib with a rate of 98 and QTc 426 Digoxin level 0.8 CHADsVAS score 6 - 13.6% risk of stroke/TIA/systemic embolism HAS BLED score 4 - Resumed home digoxin 0.125 mg p.o. - Xarelto 20 mg q day - Will monitor telemetry - Keep K > 4 and Mg > 2 - Hold home metoprolol for now as BP is soft #?Hx dementia Home memantine 10 mg daily -Pending med rec -Patient lives alone but he is only alert to name -Social service referal #Hx Pre-diabetes On admission A1c 6.2 and glucose 186. -Glucose Accu-Cheks -Insulin sliding scale - Consider diabetic education after improve mentation #Normocytic anemia, chronic On admission hemoglobin 9.8, hematocrit 35.2 -Continue to monitor CBC Health Maintenance: DVT prophylaxis: anticoagulation with rivaroxaban Diet: Cardiac diet Steve: Yes placed 05/28 Lines: PIV CODE STATUS: Full code Disposition: Pending resolution of acute encephalopathy. Patient's plan and care discussed with my attending, MD Carlos Ibarra, DO PGY-1 ([facility] Resident)
[2025-05-28] MEDS: DEXTROSE 5%-WATER 500 ML 75 ML IV ×2 (12:17→19:50)
[2025-05-28] MEDS: INSULIN LISPRO (AdmeLOG) 1 UNIT/0.01 ML UNIT SC ×2 (12:25→17:51)
--- NOTE | 2025-05-28 14:49 | ESCONSULT_ITS ---
<Statement entered by Celestina Monk MD - 05/29/25 14:08> I personally evaluated examined the patient who has a longstanding history of atrial fibrillation poor historian with dementia 89-year-old male with previous workup with atrial fibrillation and initially had a reduced ejection fraction of 40% in the past by echo in 2020. Evaluate the patient with resident physician PGY [address] Delvalle agree with treatment plan recommendation. I do feel the patient did not have any myocardial infarction troponin slightly elevated possibly due to sepsis type II troponin elevation. No need to treat this as myocardial infarction continue with rate control for A-fib and also Xarelto to be continued. Will review cardiac echo upon completion. HPI Data of Consult Consult date: 05/28/25 Requesting Physician: Allie Parmar MD Admitting Provider: Alile Parmar MD Attending Provider: Celestina Monk MD Primary Care Provider: Luis Hodge MD Consult Narrative Reason for consult: Elevated troponins History of present illness: History is limited as patient has dementia, gaps filled via chart review. 89-year-old male with past medical history of dementia, atrial fibrillation on Xarelto, pre-diabetes, hypertension, hyperlipidemia heart failure with reduced ejection fraction EF 40% 2020 who presented to the ED due to altered mental status. EMS reported that the patient was found on the floor by family members, patient lives alone, family checks on him frequently and found him to be not at baseline. They did report that patient does has decubitus ulcers on the back. When speaking to the patient he does not recall any of his medical history and does not remember how he ended up in the hospital. He does deny chest pain, palpitations, shortness of breath, PND or orthopnea.Work up was done in the ED and Sepsis alert was called and patient was admitted for Altered mental status in the setting of Sepsis secondary to UTI. Cardiology was consulted for elevated troponins. ED course: BP 121/82, HR 115 bpm, RR 16, saturating 95% on room air. Labs siginificant for elevated troponins 0.200->0.25. EKG showed atrial fibrillation rate controlled at 98bpm. Found as well with UA positive for leuk esterase and nitrites. PMHx: as above SxHx: unknown Social Hx: unknown FHx: unknown Cardiology consulted for elevated troponins. cc:: cc: Allie Parmar MD Review of Systems Review of Systems ROS Unobtainable: unobtainable due to mental status Exam Vital Signs Temp Pulse Resp BP Pulse Ox O2 Del Method 97.5 F 80 19 96/52 L 91 L Room Air 05/28/25 12:00 05/28/25 12:00 05/28/25 12:00 05/28/25 12:00 05/28/25 12:00 05/28/25 12:00 Narrative Exam Physical Exam GENERAL: NAD, thin, frail HEENT: dry mucosa. Eyes open, symmetrical, & clear CARDIO: Heart irregularly irregular, no obvious murmurs PULM: No noted coughing/dyspnea CTA B/L, no R/W/R GI: Abdomen soft, nondistended, no pain on palpation. BSx4 SKIN/MSK/EXT:decubitus ulcers, no pain on palpation. Pedal pulses present B/L Results Labs 05/28/25 04:35 05/28/25 04:35 Labs: Short CBC 05/27/25 05/28/25 Range/Units 19:12 04:35 WBC 13.9 H 11.1 H (3.8-10.6) Thou/mm3 Hgb 11.9 L 10.8 L (13.5-16.0) g/dL Hct 35.2 L 31.9 L (41.0-53.0) % Plt Count 206 151 D (140-440) Thou/mm3 BMP 05/27/25 05/28/25 19:12 04:35 Sodium 145 147 H Potassium 4.5 3.6 D Chloride 109 H 113 H Carbon Dioxide 19.6 L 21.6 BUN 53 H 50 H Creatinine 1.6 H 1.3 Glucose 186 H 169 H Calcium 10.0 9.1 Cardiac Enzymes 05/27/25 05/28/25 05/28/25 Range/Units 19:12 02:02 09:50 Troponin I 0.200 H* 0.225 H* 0.192 H* (0.0-0.045) ng/mL Liver Function 05/27/25 05/28/25 Range/Units 19:12 04:35 Total Bilirubin 2.6 H 2.2 H (0.3-1.2) mg/dL AST 45 H 43 H (0-34) U/L ALT 17 15 (10-49) U/L Alkaline Phosphatase 71 58 (46-116) U/L Albumin 4.4 3.7 D (3.4-4.8) gm/dL Urine 05/27/25 Range/Units 20:16 Urine Color Lt-Yellow (Lt Yel-Yel) Urine Clarity Clear (Clear/Hazy) Urine pH 5.5 (5.0-7.0) Ur Specific [place] 1.018 (1.001-1.035) Urine Protein Negative (Neg - Trace) Urine Glucose (UA) Negative (Negative) ABG Interpretation ABG results: 05/27/25 19:12 VBG pH 7.37 VBG pCO2 35 L VBG pO2 25 VBG Base Excess -4 L Quality Measures Quality Measures sepsis Current suspected stage: ruled out Possible source: genitourinary and skin/soft tissue Blood cultures ordered: yes Antibiotic ordered: Yes Advance care planning discussed with:: patient Medications Home Medications and Allergies Home Medications ?Medication ?Instructions ?Recorded ?Confirmed ?Type atorvastatin 20 mg tablet 20 mg PO QDAY 04/29/2104/29 History digoxin 125 mcg (0.125 mg) tablet 125 mcg PO QDAY 04/1004/29/21 History memantine 10 mg tablet 10 mg QDAY 04/29/21 04/29/21 History metformin 1,000 mg tablet 1,000 mg PO BID 04/29/21 History Allergies Allergy/AdvReac Type Severity Reaction Status Date / Time No Known Allergies Allergy Verified 04/29/21 18:46 Visit Medications Dextrose (Dextrose 50%-Water Inj 50 Ml Syringe) 25 ml IV Q15MIN PRN PRN Reason: BG 50-70 responsive npo pt Stop: 06/26/25 22:47 Dextrose (Dextrose 50%-Water Inj 50 Ml Syringe) 50 ml IV Q15MIN PRN PRN Reason: BG <50 OR BG <70 & pt unresponsive Stop: 06/26/25 22:47 Digoxin (Digoxin 0.125 Mg Tablet) 0.125 mg PO QDAY JUNIE Stop: 06/27/25 08:59 Last Admin: 05/28/25 09:02 Dose: 0.125 mg Glucagon (Glucagon Inj 1 Mg Vial) 1 mg IM Q15MIN PRN PRN Reason: BG <70, and no IV access Ceftriaxone Sodium/Dextrose (Rocephin/D5w 1gm Iv Premix) 1 gm in 50 mls @ 100 mls/hr IV [facility]DAY [facility] Stop: 06/03/25 23:08 Last Admin: 05/28/25 09:02 Dose: 100 mls/hr Dextrose (D5w) 500 mls @ 75 mls/hr IV .Q6H40M JUNIE Stop: 05/29/25 01:04 Last Admin: 05/28/25 12:17 Dose: 75 mls/hr Insulin Human Lispro (Insulin Lispro (Admelog) 1 Unit/0.01 Ml Unit) 0 unit SC AC JUNIE; Protocol Stop: 06/27/25 07:29 Last Admin: 05/28/25 12:25 Dose: 1 unit Rivaroxaban (Rivaroxaban 10 Mg Tablet) 20 mg PO QDAY [facility] Stop: 06/19/25 08:59 Discontinued Medications Sodium Chloride (Ns) 1,000 mls @ 999 mls/hr IV .Q1H1M ONE Stop: 05/27/25 20:13 Last Infusion: 05/27/25 20:49 Dose: Infused Piperacillin Sod/Tazobactam (Sod 4.5 gm/ Sodium Chloride) 100 mls @ 200 mls/hr IV X1 ONE; Protocol Stop: 05/27/25 20:37 Last Infusion: 05/27/25 20:58 Dose: Infused Vancomycin HCl 1,500 mg/Sterile Water 30 ml/ Sodium Chloride 20 ml/ Sodium Chloride 300 mls @ 120 mls/hr IV X1 ONE Stop: 05/27/25 22:37 Last Admin: 05/27/25 20:49 Dose: Not Given Vancomycin HCl 1,500 mg/Sterile Water 20 ml/ Sodium Chloride 30 ml/ Sodium Chloride 300 mls @ 120 mls/hr IV X1 ONE Stop: 05/27/25 22:37 Last Infusion: 05/27/25 23:34 Dose: Infused Ampicillin Sodium/Sulbactam (Sodium 1.5 gm/ Sodium Chloride) 50 mls @ 100 mls/hr IV Q6HR [facility] Stop: 06/04/25 00:00 Ampicillin Sodium/Sulbactam (Sodium 1.5 gm/ Sodium Chloride) 50 mls @ 100 mls/hr IV X1 ONE Stop: 05/27/25 23:29 Last Admin: 05/27/25 23:58 Dose: Not Given Magnesium Sulfate (Magnesium Sulfate Ivpb) 4 gm in 50 mls @ 12.5 mls/hr IV X1 ONE Stop: 05/28/25 02:57 Last Admin: 05/27/25 23:57 Dose: 12.5 mls/hr Sodium Chloride (Ns) 1,000 mls @ 100 mls/hr IV .Q10H ONE Stop: 05/28/25 08:58 Last Admin: 05/27/25 23:35 Dose: 100 mls/hr Rivaroxaban (Rivaroxaban 10 Mg Tablet) 15 mg PO BID JUNIE Stop: 06/18/25 01:14 Last Admin: 05/28/25 02:24 Dose: 15 mg Rivaroxaban (Rivaroxaban 2.5 Mg Tablet) 5 mg PO X1 ONE Stop: 05/28/25 08:31 Last Admin: 05/28/25 09:03 Dose: 5 mg Assessment & Plan Plan 89-year-old male with past medical history of dementia, atrial fibrillation on Xarelto, pre-diabetes, hypertension, hyperlipidemia heart failure with reduced ejection fraction EF 40% 2020 who presented to the ED due to altered mental status. Cardiology consulted for elevated troponins. #NSTEMI likely type II in the setting of sepsis #Atrial fibrillation- rate controlled #HFpEF [55-60%] Patient is clinically dry and no in acute heart failure exacerbation, he denies chest pain/pressure, shortness of breath or any cardiac symptoms. mild troponin elevation 0.20-->0.25-->0.192 Patient on xarelto at home for atrial fibrillation. EKG shows no ST elevations but does show Atrial fibrillation however rate controlled at this time. Echo: Normal left ventricular size and function. Estimated EF of 55-60%. Indeterminate diastolic function due to A-fib. Normal Right ventricular size and function. RVSP 25mmHg with RAP 8 MAC and mild mitral regurgitation. Mild TR. Severe dilated LA and RA. IVC not well visualized. - No need to trend troponins already downtrended - Continue Xarelto 20mg qday - Continue digoxin 0.125mg qday - Treat underlying sepsis - Keep K>4 and Mg>2 - Monitor telemetry #Acute Encephalopathy #UTI #Hypernatremia #possible acute Mastoiditis #Hyperbilirubinemia #Elevated AST #KHOA #?Hx dementia #Hx Pre-diabetes - as per primary team Case discussed with my attending Dr. Lacho Delvalle MD PGY-2 Disclaimer: Despite multiple revisions, due to the dictation software being used, the document bellow may not be free of grammatical errors including phonetic/typographic errors. However, this does not deter from our commitment to providing health care in the patient's best interest in mind.
--- NOTE | 2025-05-28 15:48 | PC.SS ---
Addendum entered by Michaelle Christianson 05/28/25 16:21: SS follow up note; SS was contacted by Tran from [employer] and she informed SS that patient is able to discharge to [facility]. SS updated Yeny from [facility]. Original Note: SS follow up note; SS contacted patient's son, Justino to inform him that PT recommended SNF and provide SNF choices. Sabino informed SS that he would like patient to discharge to [facility]. SS attempted to contact Tran from [facility] to obtain auth. SS left VM with SS contact Number.
[2025-05-28 16:44] LABS: Troponin I 0.166 ng/mL (0.0-0.045)
[2025-05-28 22:58] LABS: Troponin I 0.159 ng/mL (0.0-0.045)
[2025-05-29] VITALS (9 sets, daily range): BP systolic 90–113; BP diastolic 60–74; PULSE 68–87; RESP 13–96; TEMP 36.2–36.6; O2SAT 94–99; BMI 22.3; BMI 22.4
[2025-05-29 05:29] LABS: Basophils # (Auto) 0.0 Thou/mm3 (0.0-0.2); Basophils % (Auto) 0 % (0-2.5); Eosinophils # (Auto) 0.1 Thou/mm3 (0.0-0.5); Eosinophils % (Auto) 1 % (0-10); Hematocrit 30.6 % (41.0-53.0); Hemoglobin 10.2 g/dL (13.5-16.0); Immature Granulocytes Auto 0.05 Thou/mm3 (0.00-0.00); Lymphocytes # (Auto) 2.1 Thou/mm3 (1.0-4.8); Lymphocytes % (Auto) 23 % (10-50); Mean Corpuscular HGB Conc 33.3 g/dl (31.0-37.0); Mean Corpuscular Hemoglobin 32.2 pg (25.0-35.0); Mean Corpuscular Volume 97 fL (80-100); Monocytes # (Auto) 0.8 Thou/mm3 (0.0-0.8); Monocytes % (Auto) 9 % (0-12); Neutrophils # (Auto) 5.9 Thou/mm3 (1.8-7.7); Neutrophils % (Auto) 66 % (37-80); Nucleated Red Blood Cell # 0.00 Thou/mm3 (0.00-0.00); Nucleated Red Blood Cell % 0 /100 WBC (0); Platelet Count 148 Thou/mm3 (140-440); RDW Standard Deviation 54.1 fL (35.1-43.9); Red Blood Count 3.17 Miln/mm3 (4.50-5.90); White Blood Count 9.0 Thou/mm3 (3.8-10.6)
[2025-05-29 06:12] LABS: Alanine Aminotransferase 16 U/L (10-49); Albumin, Serum 3.3 gm/dL (3.4-4.8); Albumin/Globulin Ratio 1.7 (1.2-2.2); Alkaline Phosphatase 52 U/L (46-116); Anion Gap 10 (7-16); Aspartate Amino Transferase 33 U/L (0-34); BUN/Creatinine Ratio 27 Ratio (12-20); Bilirubin,Total 1.2 mg/dL (0.3-1.2); Blood Urea Nitrogen 32 mg/dL (9-23); Calcium 8.3 mg/dL (8.3-10.6); Calcium (Corrected) 8.9 mg/dL (8.5-10.1); Carbon Dioxide 22.0 mMol/L (20.0-31.0); Chloride 108 mMol/L (98-107); Creatinine (Component) 1.2 mg/dL (0.6-1.3); Estimated Creatinine Clearance 44.5 mL/min (>60); Globulin 1.9 gm/dL (2.3-3.5); Glucose 157 mg/dL (74-106); Magnesium 1.9 mg/dL (1.6-2.6); Osmolality,Calculated 289 (275-295); Phosphorous 2.3 mg/dL (2.4-5.1); Potassium 3.8 mMol/L (3.4-5.1); Sodium 140 mMol/L (136-145); Total Protein 5.2 gm/dL (5.7-8.2); eGFR 59 See Note
--- NOTE | 2025-05-29 09:17 | PC.SS ---
Update: MANIFEST CLERK informed by resident that plan is to d/c the patient tomorrow. Patient to d/c to SNF.
[2025-05-29] MEDS: cefTRIAXone/D5w 1gm IV premix 1 GM/50 ML BAG IV (10:12)
[2025-05-29] MEDS: RIVAROXABAN 10 MG TABLET 20 MG PO (10:13)
[2025-05-29] MEDS: DIGOXIN 0.125 MG TABLET PO (10:13)
[2025-05-29] MEDS: NAPH,KPH MBDB 1 PACKET (1.5 GM) PO ×2 (10:13→20:03)
[2025-05-29] MEDS: INSULIN LISPRO (AdmeLOG) 1 UNIT/0.01 ML UNIT SC ×2 (10:57→16:45)
--- NOTE | 2025-05-29 12:44 | ESPR_ITS ---
<Statement entered by Yosef Dow MD - 06/03/25 17:39> I reviewed above note and agree with findings and plans. I have also personally examined the patient with medicine team and went over assessment and plan with medical team including international marketing executive and resident physician. Documentation for date of: 05/29/25 Subjective Subjective Interval history: Patient examined at bedside. No events overnight. Has no major complaints except for feeling lethargic. Vitals are stable telemetry was reviewed patient remains in atrial fibrillation with a rate of around 80s. Leukocytosis resolved WBC 9. Hypernatremia has resolved with sodium 140, potassium 3.8, creatinine 1.2. Bourne in place draining clear yellow urine. Urine cultures grew GPC. Significance uncertain, may represent true infection vs contamination. Will continue ceftriaxone 1g daily and wait for speciation. Continue digoxin and Xarelto for management afib. Exam Vital Signs Temp Pulse Resp BP Pulse Ox O2 Del Method 97.9 F 78 20 113/71 95 Room Air 05/29/25 08:00 05/29/25 10:13 05/29/25 08:00 05/29/25 10:13 05/29/25 08:00 05/29/25 08:00 Narrative Exam General: elderyly male, sleeping, No acute distress, cooperative HEENT: NCAT, No JVD noted. Mucosa moist. Pupils are equal and reactive to light bilaterally Cardiovascular: Normal S1 and S2. Regular rate and rhythm. Respiratory: Lungs are clear to auscultation bilaterally. No wheezing or crackles heard. Abdomen: Soft, nontender, not distended, normal bowel sounds. : bourne in place, clear yellow urine Skin: Warm to touch, dry, no rashes noted Musculoskeletal: No gross injuries. Able to move all 4 extremities. No pitting edema Neuro: Alert and oriented to self only. No focal neuro deficits. Psych: Normal affect and mood Objective Labs 05/29/25 04:48 05/29/25 04:48 Labs: Laboratory Results - last 24 hr 05/28/25 05/28/25 05/29/25 15:17 22:16 04:48 WBC 9.0 RBC 3.17 L Hgb 10.2 L Hct 30.6 L MCV 97 MCH 32.2 MCHC 33.3 RDW Std Deviation 54.1 H Plt Count 148 Neut % (Auto) 66 Lymph % (Auto) 23 [place] % (Auto) 9 Eos % (Auto) 1 Baso % (Auto) 0 Neut # (Auto) 5.9 Lymph # (Auto) 2.1 [place] # (Auto) 0.8 Eos # (Auto) 0.1 Baso # (Auto) 0.0 Immature Gran # (Auto) 0.05 H Absolute Nucleated RBC 0.00 Immature Gran % 1 H Nucleated RBC % 0 Sodium 140 Potassium 3.8 Chloride 108 H Carbon Dioxide 22.0 Anion Gap 10 BUN 32 H Creatinine 1.2 Estim Creat Clear Calc 44.5 L eGFR 59 L BUN/Creatinine Ratio 27 H Glucose 157 H Calculated Osmolality 289 Calcium 8.3 Corrected Calcium 8.9 Phosphorus 2.3 L Magnesium 1.9 Total Bilirubin 1.2 D AST 33 ALT 16 Alkaline Phosphatase 52 Troponin I 0.166 H* 0.159 H* Total Protein 5.2 L Albumin 3.3 L Globulin 1.9 L Albumin/Globulin Ratio 1.7 ABG Interpretation ABG results: 05/27/25 19:12 VBG pH 7.37 VBG pCO2 35 L VBG pO2 25 VBG Base Excess -4 L Quality Measures Quality Measures sepsis Current suspected stage: ruled out Possible source: genitourinary and skin/soft tissue Blood cultures ordered: yes Antibiotic ordered: Yes Advance care planning discussed with:: other Assessment & Plan Assessment Current Active Medications: Generic Name Dose Route Start Last Admin Trade Name Freq PRN Reason Stop Dose Admin Dextrose 25 ml 05/27/25 22:48 Dextrose 50%-Water Inj 50 Ml Syringe IV 06/26/25 22:47 Q15MIN PRN BG 50-70 responsive npo pt Dextrose 50 ml 05/27/25 22:48 Dextrose 50%-Water Inj 50 Ml Syringe IV 06/26/25 22:47 Q15MIN PRN BG <50 OR BG <70 & pt unresponsive Digoxin 0.125 mg 05/28/25 09:00 05/29/25 10:13 Digoxin 0.125 Mg Tablet PO 06/27/25 08:59 0.125 mg QDAY JUNIE Administration Glucagon 1 mg 05/27/25 22:48 Glucagon Inj 1 Mg Vial IM Q15MIN PRN BG <70, and no IV access Ceftriaxone Sodium/Dextrose 1 gm in 50 mls @ 100 mls/hr 05/27/25 23:09 05/29/25 10:12 Rocephin/D5w 1gm Iv Premix IV 06/03/25 23:08 100 mls/hr QDAY JUNIE Administration Insulin Human Lispro 0 unit 05/28/25 07:30 05/29/25 10:57 Insulin Lispro (Admelog) 1 Unit/0.01 Ml Unit SC 06/27/25 07:29 3 unit AC JUNIE Administration Protocol Potassium Phos/Sodium Phos 1 packet 05/29/25 09:00 05/29/25 10:13 Naph,[facility] Mbdb 1 Packet (1.5 Gm) PO 06/28/25 08:59 1 packet BID JUNIE Administration Rivaroxaban 20 mg 05/29/25 09:00 05/29/25 10:13 Rivaroxaban 10 Mg Tablet PO 06/19/25 08:59 20 mg QDAY JUNIE Administration Plan This is an 89 yom with a h/o of dimentia, a-fib on rivaroxaban, HFrEF last EF 40% in 2020, pre DM with A1c 6.2 who was found on the floor by family members, admitted for workup of acute encephalopathy. #Acute Encephalopathy (resolved) 2/ #GPC UTI Patient alert but only oriented to self. Unclear if this is his baseline. CT head negative for structural causes but acute mastoiditis was noted on the read, see below. UA was positive for leukocyte esterase, nitrates, and 29 WBCs. Additionally, he was found to have Na 147, BUN, 50, Cr 1.3, with a GFR of 38, slight elevation of T.bili 2.2, AST 43, with normal ALT and ALP of 15 and 58. UTI is the most likely ambulette driver of his encephalopathy, though combination of mild metabolic derangements is likely contributory. These metabolic derangements are likely a result of dehydration. Sepsis considered given patient's initial hypotension, sofa score 5. Clinically, the patient does not appear to be undergoing end organ dysfunction upon examination, therefore ruled out. - IV Ceftriaxone 1 g daily (05/27. -Urine speciation pending. Uncertain if true infection vs contamination. #possible acute Mastoiditis This is an incidental finding on CT non-con of the head. The patient denies fevers, or head pain, the mastoid processes are non-tender to palpation. He remains afebrile, WBC marginally elevatedat 11, but likely secondary to UTI. Clinically, this patient does not appear to have mastoiditis. - Will moniter clinically. - Consider MRI non-con if patient fails to improve. #NSTEMI type II #HFpEF (55-60%) Patient reports no chest pain but was tachycardic. Troponin downtrending with fluid resuscitation and return to normal HR. 0.225 to 0.192 to 0.166. Given evidence of urinary infection, dehydration, and improvement with fluids and antibiotics, this is consistent with NSTEMI type II. Cardiology in agreement. ECHO 05/01/2021: HFrEF EF40% Trace mitral and trace tricuspid regurgitation noted. EKG: A-fib with a rate of 98 and QTc 426 Echo 05/28--Normal left ventricular size and function. Estimated EF of 55-60%. Indeterminate diastolic function due to A-fib. - Keep K > 4 and Mg > 2 -hold metoprolol as BP not permissible #Atrial fibrillation, rate controlled #Hx DVT/PE Patient has a history of atrial fibrillation on digoxin 125 and Xarelto EKG shows A-fib with a rate of 98 and QTc 426 Digoxin level 0.8 CHADsVAS score 6 - 13.6% risk of stroke/TIA/systemic embolism HAS BLED score 4 - digoxin 0.125 mg p.o. - Xarelto 20 mg q day - Will monitor telemetry - Keep K > 4 and Mg > 2 - Hold home metoprolol for now as BP is soft #dementia Home memantine 10 mg daily -Patient lives alone but he is only alert to name -Social service referal #Pre-diabetes On admission A1c 6.2 and glucose 186. -Glucose Accu-Cheks -Insulin sliding scale - Consider diabetic education after improve mentation #Normocytic anemia, chronic On admission hemoglobin 9.8, hematocrit 35.2 -Continue to monitor CBC #Hypernatremia-resolved #Hyperbilirubinemia-resolved #Elevated AST-resolved #KHOA-resolved Health Maintenance: DVT prophylaxis: anticoagulation with rivaroxaban Diet: Cardiac diet Bourne: Yes placed 05/28 Lines: PIV CODE STATUS: Full code Disposition: dc SNF pending UCx Patient's plan and care discussed with my attending, Dr. Dow. Cyndi Mcarthur PGY2
--- NOTE | 2025-05-29 17:59 | ESPR_ITS ---
RE: ANY ROBBINS : 1935 DATE OF SERVICE: 05/29/2025 SUBJECTIVE: The patient was admitted in the hospital with multiple medical problems including altered mental status, lethargic. He does not appear to have any complaints. History of atrial fibrillation HFref with ejection fraction 40% by history, came to the hospital with multiple issues and mild troponin elevation, not having any significant chest pain or shortness of breath. The patient appears to have a urinary tract infection as the source of infection. The patient is not offering any complaints. No chest pain or shortness of breath. Still somewhat confused, but not complaining of any angina, orthopnea, or shortness of breath. OBJECTIVE: Vital Signs: His vital signs remain stable. Blood pressure is 110/78, pulse rate 78, respirations / 20. Temperature is normal. Pulse oximetry 95% on room air. Head: Atraumatic. Neck: Supple. No JVD. Lungs: Decreased breath sounds. No rales. Heart: S1, S2 irregular, atrial fibrillation. Abdomen: Thin and soft. Extremities: No significant findings. /Rectal: Not performed. Cardiac echo showed evidence of preserved ejection fraction of 55 to 60%. Dilated atrium. Chemistry panel shows that troponin is slightly elevated, but has calmed down since then, 0.19, 0.16, now 0.15. ASSESSMENT: 1. Atrial fibrillation, chronic persistent. 2. Congestive heart failure, well compensated. 3. Dementia. 4. Hypertension by history. 5. Hypercholesterolemia. 6. Sepsis, urinary tract infection. RECOMMENDATIONS: The patient appears to have type 2 troponin elevation. No need to treat this as myocardial infarction. Continue the antibiotic therapy for urinary tract infection. Continue rivaroxaban for anticoagulation since the patient is already on it at home. If the patient develops tachycardia, we will consider continuing beta-jonel. His blood pressure is on the low side, hence possibly beta-jonel is not being tolerated currently. DT: 14:04:21 TT: 16:36:00 Ref: [id number] - TID: [id number] MTDD
[2025-05-30] VITALS (10 sets, daily range): BP systolic 107–134; BP diastolic 68–86; PULSE 68–90; RESP 14–98; TEMP 36.3–37.2; O2SAT 94–98
[2025-05-30 05:33] LABS: Basophils # (Auto) 0.0 Thou/mm3 (0.0-0.2); Basophils % (Auto) 0 % (0-2.5); Eosinophils # (Auto) 0.1 Thou/mm3 (0.0-0.5); Eosinophils % (Auto) 1 % (0-10); Hematocrit 28.4 % (41.0-53.0); Hemoglobin 9.7 g/dL (13.5-16.0); Immature Granulocytes Auto 0.07 Thou/mm3 (0.00-0.00); Lymphocytes # (Auto) 1.9 Thou/mm3 (1.0-4.8); Lymphocytes % (Auto) 21 % (10-50); Mean Corpuscular HGB Conc 34.2 g/dl (31.0-37.0); Mean Corpuscular Hemoglobin 32.8 pg (25.0-35.0); Mean Corpuscular Volume 96 fL (80-100); Monocytes # (Auto) 0.7 Thou/mm3 (0.0-0.8); Monocytes % (Auto) 8 % (0-12); Neutrophils # (Auto) 6.1 Thou/mm3 (1.8-7.7); Neutrophils % (Auto) 68 % (37-80); Nucleated Red Blood Cell # 0.00 Thou/mm3 (0.00-0.00); Nucleated Red Blood Cell % 0 /100 WBC (0); Platelet Count 140 Thou/mm3 (140-440); RDW Standard Deviation 52.0 fL (35.1-43.9); Red Blood Count 2.96 Miln/mm3 (4.50-5.90); White Blood Count 9.0 Thou/mm3 (3.8-10.6)
[2025-05-30 06:08] LABS: Alanine Aminotransferase 41 U/L (10-49); Albumin, Serum 3.2 gm/dL (3.4-4.8); Albumin/Globulin Ratio 1.6 (1.2-2.2); Alkaline Phosphatase 62 U/L (46-116); Anion Gap 9 (7-16); Aspartate Amino Transferase 74 U/L (0-34); BUN/Creatinine Ratio 28 Ratio (12-20); Bilirubin,Total 1.3 mg/dL (0.3-1.2); Blood Urea Nitrogen 28 mg/dL (9-23); Calcium 8.1 mg/dL (8.3-10.6); Calcium (Corrected) 8.7 mg/dL (8.5-10.1); Carbon Dioxide 23.2 mMol/L (20.0-31.0); Chloride 106 mMol/L (98-107); Creatinine (Component) 1.0 mg/dL (0.6-1.3); Estimated Creatinine Clearance 53.4 mL/min (>60); Globulin 2.0 gm/dL (2.3-3.5); Glucose 151 mg/dL (74-106); Magnesium 1.4 mg/dL (1.6-2.6); Osmolality,Calculated 284 (275-295); Phosphorous 3.0 mg/dL (2.4-5.1); Potassium 3.6 mMol/L (3.4-5.1); Sodium 138 mMol/L (136-145); Total Protein 5.2 gm/dL (5.7-8.2); eGFR > 60 See Note
[2025-05-30] MEDS: INSULIN LISPRO (AdmeLOG) 1 UNIT/0.01 ML UNIT SC ×3 (07:46→17:01)
[2025-05-30] MEDS: DIGOXIN 0.125 MG TABLET PO (08:19)
[2025-05-30] MEDS: NAPH,KPH MBDB 1 PACKET (1.5 GM) PO ×2 (08:19→21:26)
[2025-05-30] MEDS: Magnesium Sulfate 4 GM Ivpb 4 GM/50 ML BAG IV (08:20)
[2025-05-30] MEDS: cefTRIAXone/D5w 1gm IV premix 1 GM/50 ML BAG IV (08:21)
[2025-05-30] MEDS: RIVAROXABAN 10 MG TABLET 20 MG PO (08:22)
--- NOTE | 2025-05-30 10:37 | PD.RESDS ---
Planned Discharge Date 05/30/25 DS: Providers Provider Date of admission: 05/27/25 22:19 Primary care physician: Luis Hodge MD Admitting Provider: Allie Parmar MD Attending Provider on Admission: Allie Parmar MD Consults: 05/28/25 01:17 Consult to Cardiology Routine Comment: Consulting Provider: Celestina Monk 05/28/25 02:07 Referral Wound Care Routine Comment: lower back . midd upper back 05/28/25 11:06 Consult to Infectious Diseases Routine Comment: Question regarding possible mastoiditis seen on CT Consulting Provider: Dany Osullivan 05/28/25 11:16 Referral Physical Therapy Routine Comment: Physician Instructions: 05/28/25 12:06 Referral Speech Therapy Routine Comment: 05/28/25 13:13 Referral Nutritional Services Routine Comment: Wounds 05/28/25 15:38 Consult to Cardiology Routine Comment: Consulting Provider: Celestina Monk Attending Provider on DC: Carlos Torres MD Discharging Provider: Carlos Torres MD Hospital Course Hospital Course Hospital course: Patient examined at bedside. No events overnight. Has no major complaints except for feeling lethargic. Vitals are stable telemetry was reviewed patient remains in atrial fibrillation with a rate of around 80s. Leukocytosis resolved WBC 9. Hypernatremia has resolved with sodium 140, potassium 3.8, creatinine 1.2. Steve in place draining clear yellow urine. Urine cultures grew GPC. Significance uncertain, may represent true infection vs contamination. Will continue ceftriaxone 1g daily and wait for speciation. Continue digoxin and Xarelto for management afib. Time Spent with Patient Time attestation: Total time spent providing and/or coordinating discharge services: Exam Vital Signs Temp Pulse Resp BP Pulse Ox O2 Del Method 97.8 F 75 18 118/80 96 Room Air 05/30/25 08:00 05/30/25 08:19 05/30/25 08:00 05/30/25 08:19 05/30/25 08:00 05/30/25 08:00 Discharge Plan Plan Patient Disposition: Xfer Skilled Nsg Fac (SNF) Patient condition on transfer: Stable Prescriptions/Referrals Prescriptions/Med Rec: New amoxicillin-pot clavulanate 875-125 mg tablet 1 tab PO BID 4 Days Qty: 8 0RF Continued digoxin 125 mcg (0.125 mg) Tablet 125 mcg PO QDAY memantine 10 mg tablet 10 mg PO BID lisinopril 10 mg tablet 10 mg PO QDAY Qty: 30 0RF Xarelto DVT-PE Treat 30d Start 15 mg (42)- 20 mg (9) tablets,dose pack See Rx Instructions .ROUTE .COMPLEX Qty: 51 0RF Rx Instructions: Take one-15 mg tablet twice daily for 21 days, then one-20 mg tablet once daily; must take with meal/food metformin 500 mg tablet 500 mg PO BID Patient Comments: TAKE 1 TABLET BY MOUTH TWICE A DAY Held atorvastatin 20 mg Tablet 20 mg PO QDAY Hold Instructions: Resume on 06/15/25. Resume after you see your PCP metoprolol tartrate 50 mg tablet 50 mg PO BID Qty: 60 0RF Hold Instructions: Resume on 06/15/25. Resume after you see your PCP Discontinued metformin 1,000 mg Tablet 500 mg PO BID Referrals: Luis Hodge MD [Primary Care Provider, Family Practice] Patient/Caregiver Discharge Instructions Other Discharge Activity Instructions:: Resume previous medications. Hold your metoprolol and atorvastatin until your see your PCP. Complete antibiotic course as prescribed for 4 days as treatment for your UTI. Follow up with PCP in 1-2 weeks. If you do not have PCP, call [facility] at [phone] to schedule an appointment. Education Materials: Anatomy of the Male Urinary Tract, Urinary Tract Infections in Men Print Language: Mauritanian Stand Alone Forms: Marifer Award Info., Patient Portal Info Letter Discharge Order Discharge Orders: Discharge (Routine); Ordered 05/30/25 Ordered By: Cyndi Mcarthur
--- NOTE | 2025-05-30 10:52 | PC.SS ---
PASRR LVL 1was completed and downloaded. SS sent via [facility] to [facility]. SS spoke to Jenna at [facility] in regards to pt DC today, per Jenna they do not have auth on file for the pt yet. SS updated Team A Dr. Mcarthur.
--- NOTE | 2025-05-30 12:40 | ESPR_ITS ---
<Statement entered by Yosef Dow MD - 06/03/25 17:40> I reviewed above note and agree with findings and plans. I have also personally examined the patient with medicine team and went over assessment and plan with medical team including rn intern and resident physician. <Statement entered by Cyndi Mcarthur MD - 05/30/25 12:57> Patient examined at bedside. No events overnight. Patient does not express any complaints, AO x 1 (self only). Vitals are stable, creatinine down trended 1.0, bilirubin mildly increased at 1.3. Physical exam is benign for any abdominal pain. Due to increase in AST and the bilirubin, we will plan to discontinue ceftriaxone and complete remaining treatment for his UTI with p.o. Augmentin. Plan to transition to p.o. agent tomorrow. Discharge is pending placement at SNF. Plan for voiding trial. The patient's management plan was discussed with my attending physician Dr. Dow. Cyndi Mcarthur, PGY-2 Documentation for date of: 05/30/25 Subjective Subjective Interval history: Patient examined at bedside, NAOE. Patient remains AxO x2 for self and birthday, can get orientation to place with reorientation. No concerns or symptoms reported. Patient with K of 3.6 and Mg of 1.4 today, both repleted. T.bili slightly elevated along with AST at 1.3 and 74 respectively. Patient non-tender to deep palpation of the abdomen, particularly at the RUQ. 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 Patient medically cleared for discharge to SNF today, but now available beds at this time. Plan for DC tomorrow 05/30. DC Steve and voiding trial today. Exam Vital Signs Temp Pulse Resp BP Pulse Ox O2 Del Method 97.4 F 74 18 107/68 98 Room Air 05/30/25 12:05/30/25 12:00 05/30/25 12:00 05/30/25 12:05/30/25 12:05/30/25 12:00 Narrative Exam General: Elderly patient, pleasantly demented no acute distress, frail and lean appearing. HEENT: Mucosa moist. Pupils are equal and reactive to light bilaterally Cardiovascular: Normal S1 and S2. normal rate, irregular rhythm. No murmur appreciated Respiratory: Clear to auscultation bilaterally without wheezes or crackles. Abdomen: Soft, nontender, not distended, arteaga sign negative. : Steve in place draining straw yellow fluid. Skin: Dry, no rashes or bruising Musculoskeletal: No gross injuries. Able to move all 4 extremities. Non edematous lower extremities. Neuro: Alert and oriented x1 to self. No focal neuro deficits. Objective Labs 05/30/25 05:10 05/30/25 05:10 Labs: Laboratory Results - last 24 hr 05/30/25 05:10 WBC 9.0 RBC 2.96 L Hgb 9.7 L Hct 28.4 L MCV 96 MCH 32.8 MCHC 34.2 RDW Std Deviation 52.0 H Plt Count 140 Neut % (Auto) 68 Lymph % (Auto) 21 [place] % (Auto) 8 Eos % (Auto) 1 Baso % (Auto) 0 Neut # (Auto) 6.1 Lymph # (Auto) 1.9 [place] # (Auto) 0.7 Eos # (Auto) 0.1 Baso # (Auto) 0.0 Immature Gran # (Auto) 0.07 H Absolute Nucleated RBC 0.00 Immature Gran % 1 H Nucleated RBC % 0 Sodium 138 Potassium 3.6 Chloride 106 Carbon Dioxide 23.2 Anion Gap 9 BUN 28 H Creatinine 1.0 Estim Creat Clear Calc 53.4 L eGFR > 60 BUN/Creatinine Ratio 28 H Glucose 151 H Calculated Osmolality 284 Calcium 8.1 L Corrected Calcium 8.7 Phosphorus 3.0 Magnesium 1.4 L Total Bilirubin 1.3 H AST 74 H ALT 41 Alkaline Phosphatase 62 Total Protein 5.2 L Albumin 3.2 L Globulin 2.0 L Albumin/Globulin Ratio 1.6 ABG Interpretation ABG results: 05/27/25 19:12 VBG pH 7.37 VBG pCO2 35 L VBG pO2 25 VBG Base Excess -4 L Quality Measures Quality Measures sepsis Current suspected stage: ruled out Possible source: genitourinary and skin/soft tissue Blood cultures ordered: yes Antibiotic ordered: Yes Advance care planning discussed with:: other Assessment & Plan Assessment Current Active Medications: Generic Name Dose Route Start Last Admin Trade Name Freq PRN Reason Stop Dose Admin Dextrose 25 ml 05/27/25 22:48 Dextrose 50%-Water Inj 50 Ml Syringe IV 06/26/25 22:47 Q15MIN PRN BG 50-70 responsive npo pt Dextrose 50 ml 05/27/25 22:48 Dextrose 50%-Water Inj 50 Ml Syringe IV 06/26/25 22:47 Q15MIN PRN BG <50 OR BG <70 & pt unresponsive Digoxin 0.125 mg 05/28/25 09:00 05/30/25 08:19 Digoxin 0.125 Mg Tablet PO 06/27/25 08:59 0.125 mg QDAY JUNIE Administration Glucagon 1 mg 05/27/25 22:48 Glucagon Inj 1 Mg Vial IM Q15MIN PRN BG <70, and no IV access Ceftriaxone Sodium/Dextrose 1 gm in 50 mls @ 100 mls/hr 05/27/25 23:09 05/30/25 08:21 Rocephin/D5w 1gm Iv Premix IV 06/03/25 23:08 100 mls/hr QDAY JUNIE Administration Insulin Human Lispro 0 unit 05/28/25 07:30 05/30/25 11:30 Insulin Lispro (Admelog) 1 Unit/0.01 Ml Unit SC 06/27/25 07:29 1 unit AC JUNIE Administration Protocol Potassium Phos/Sodium Phos 1 packet 05/29/25 09:00 05/30/25 08:19 Naph,[facility] Mbdb 1 Packet (1.5 Gm) PO 06/28/25 08:59 1 packet BID JUNIE Administration Rivaroxaban 20 mg 05/29/25 09:00 05/30/25 08:22 Rivaroxaban 10 Mg Tablet PO 06/19/25 08:59 20 mg QDAY JUNIE Administration Plan This is an 89 yom with a h/o of dimentia, a-fib on rivaroxaban, HFrEF last EF 40% in 2020, pre DM with A1c 6.2 who was found on the floor by family members, admitted for workup of acute encephalopathy. #Acute Encephalopathy (resolved) 2/2 #GPC UTI Patient alert but only oriented to self. Unclear if this is his baseline. CT head negative for structural causes but acute mastoiditis was noted on the read, see below. UA was positive for leukocyte esterase, nitrates, and 29 WBCs. Additionally, he was found to have Na 147, BUN, 50, Cr 1.3, with a GFR of 38, slight elevation of T.bili 2.2, AST 43, with normal ALT and ALP of 15 and 58. UTI is the most likely otr company driver of his encephalopathy, though combination of mild metabolic derangements is likely contributory. These metabolic derangements are likely a result of dehydration. Sepsis considered given patient's initial hypotension, sofa score 5. Clinically, the patient does not appear to be undergoing end organ dysfunction upon examination, therefore ruled out. - IV Ceftriaxone 1 g daily (05/27 to 05/30) - Augmentin PO (05/31 to 06/03 for 7 day total course) - G+ cocci grown in urine. Urine speciation pending. Possible contamination, but will treat for infection given patient's original presentation. #possible acute Mastoiditis This is an incidental finding on CT non-con of the head. The patient denies fevers, or head pain, the mastoid processes are non-tender to palpation. He remains afebrile, WBC marginally elevatedat 11, but likely secondary to UTI. Clinically, this patient does not appear to have mastoiditis. He has remained clinically stable throughout his hospital course without aberration in vitals or labs. - Will moniter clinically. - Consider MRI non-con if patient fails to improve. #NSTEMI type II #HFpEF (55-60%) Patient reports no chest pain but was tachycardic. Troponin downtrending with fluid resuscitation and return to normal HR. 0.225 to 0.192 to 0.166. Given evidence of urinary infection, dehydration, and improvement with fluids and antibiotics, this is consistent with NSTEMI type II. Cardiology in agreement. ECHO 05/01/2021: HFrEF EF40% Trace mitral and trace tricuspid regurgitation noted. EKG: A-fib with a rate of 98 and QTc 426 Echo 05/28--Normal left ventricular size and function. Estimated EF of 55-60%. Indeterminate diastolic function due to A-fib. - Keep K > 4 and Mg > 2 -hold metoprolol as BP not permissible #Atrial fibrillation, rate controlled #Hx DVT/PE Patient has a history of atrial fibrillation on digoxin 125 and Xarelto EKG shows A-fib with a rate of 98 and QTc 426 Digoxin level 0.8 CHADsVAS score 6 - 13.6% risk of stroke/TIA/systemic embolism HAS BLED score 4 - digoxin 0.125 mg p.o. - Xarelto 20 mg q day - Will monitor telemetry - Keep K > 4 and Mg > 2 - Hold home metoprolol for now as BP is soft #dementia Home memantine 10 mg daily -Patient lives alone but he is only alert to name -Social service referal #Pre-diabetes On admission A1c 6.2 and glucose 186. -Glucose Accu-Cheks -Insulin sliding scale - Consider diabetic education after improve mentation #Normocytic anemia, chronic On admission hemoglobin 9.8, hematocrit 35.2 -Continue to monitor CBC #Hyperbilirubinemia- #Elevated AST- Mild elevation in T.bili and AST today, 1.3 and 74 respectively. This is likely secondary to ceftriaxone induced cholestasis. Less likely is biliary pathology like cholelithiasis or cholecystitis, as ALP is normal at 62 and patient has no abdominal tenderness to palpation and arteaga sign is negative. #Hypernatremia-resolved #KHOA-resolved Health Maintenance: DVT prophylaxis: anticoagulation with rivaroxaban Diet: Cardiac diet Steve: placed 05/28, removed 05/30 Lines: PIV CODE STATUS: Full code Disposition: dc SNF pending bed availability Patient's plan and care discussed with my attending, Dr. Dow and senior resident, Dr. Mcarthur. Carlos Torres, DO PGY-1 ([facility] Resident)
--- NOTE | 2025-05-30 23:20 | ESPR_ITS ---
RE: ANY ROBBINS : 1935 DATE OF SERVICE: 05/30/2025 SUBJECTIVE: The patient is an 89-year-old elderly male, who was admitted to the hospital with confusion, altered mental status, and history of chronic atrial fibrillation, on medical management. He has had slight troponin elevation initially, but has trended down since then. Not complaining of any chest pain or shortness of breath. The patient has no history of atrial fibrillation or history of DVT/PE in the past. He has been on digoxin as well as Xarelto, which are being continued. The patient also has significant dementia and unable to give a good history. Clinically, he is about the same, somewhat sleepy today this afternoon, but does not complain of any chest pain or shortness of breath. PHYSICAL EXAMINATION: Vital Signs: His exam shows vital signs stable. Blood pressure 110/68, pulse rate 77, respirations 16, and temperature normal. HEENT: Head is atraumatic. Neck: Supple. Lungs: Decreased breath sounds. No rales or rhonchi. Heart: S1 and S2 irregular. Atrial fibrillation controlled well. Abdomen: Thin and soft. Extremities: No edema. ASSESSMENT: 1. Atrial fibrillation, chronic, persistent, stable. 2. Elevated troponin level, positive type 2 troponin elevation 0.22, came down to 0.16. 3. Congestive heart failure with preserved ejection fraction. Previous ejection fraction was 20%, now up to 55%, stable. RECOMMENDATIONS: Continue medical management. Continue with digoxin 125 mcg daily and Xarelto for anticoagulation for atrial fibrillation. DT: 23:01:51 TT: 23:18:00 Ref: [id number] - TID: [id number]
[2025-05-31] VITALS: BP 119/78; PULSE 76; PULSE 81; RESP 16; TEMP 37.3; O2SAT 96
[2025-05-31 04:00] VITALS: BP 94/61; PULSE 76; RESP 15; TEMP 37.3; O2SAT 93
[2025-05-31 05:54] VITALS: BMI 22.4
[2025-05-31 06:34] LABS: Alanine Aminotransferase 32 U/L (10-49); Albumin, Serum 3.3 gm/dL (3.4-4.8); Albumin/Globulin Ratio 1.5 (1.2-2.2); Alkaline Phosphatase 61 U/L (46-116); Anion Gap 8 (7-16); Aspartate Amino Transferase 31 U/L (0-34); BUN/Creatinine Ratio 24 Ratio (12-20); Bilirubin,Total 1.5 mg/dL (0.3-1.2); Blood Urea Nitrogen 22 mg/dL (9-23); Calcium 8.1 mg/dL (8.3-10.6); Calcium (Corrected) 8.7 mg/dL (8.5-10.1); Carbon Dioxide 23.6 mMol/L (20.0-31.0); Chloride 105 mMol/L (98-107); Creatinine (Component) 0.9 mg/dL (0.6-1.3); Estimated Creatinine Clearance 59.4 mL/min (>60); Globulin 2.2 gm/dL (2.3-3.5); Glucose 139 mg/dL (74-106); Osmolality,Calculated 279 (275-295); Potassium 3.9 mMol/L (3.4-5.1); Sodium 137 mMol/L (136-145); Total Protein 5.5 gm/dL (5.7-8.2); eGFR > 60 See Note
[2025-05-31] MEDS: INSULIN LISPRO (AdmeLOG) 1 UNIT/0.01 ML UNIT SC (07:42)
[2025-05-31 08:00] VITALS: BP 113/78; PULSE 75; PULSE 83; RESP 17; TEMP 36.3; O2SAT 97
--- NOTE | 2025-05-31 09:54 | ESDS_ITS ---
<Statement entered by Yosef Dow MD - 06/03/25 17:40> I reviewed above note and agree with findings and plans. I have also personally examined the patient with medicine team and went over assessment and plan with medical team including production intern and resident physician. <Statement entered by Cyndi Mcarthur MD - 05/31/25 20:29> Note reviewed, I agree with most of its contents and agree with the patient's care as documented by Dr. Torres. The patient's management plan was discussed with my attending physician Dr. Dow. Cyndi Mcarthur, PGY-2 Planned Discharge Date 05/31/25 DS: Providers Provider Date of admission: 05/27/25 22:19 Primary care physician: Luis Hodge MD Admitting Provider: Allie Parmar MD Attending Provider on Admission: Yosef Dow MD Consults: 05/28/25 01:17 Consult to Cardiology Routine Comment: Consulting Provider: Celestina Monk 05/28/25 02:07 Referral Wound Care Routine Comment: lower back . midd upper back 05/28/25 11:06 Consult to Infectious Diseases Routine Comment: Question regarding possible mastoiditis seen on CT Consulting Provider: Dany Osullivan 05/28/25 11:16 Referral Physical Therapy Routine Comment: Physician Instructions: 05/28/25 12:06 Referral Speech Therapy Routine Comment: 05/28/25 13:13 Referral Nutritional Services Routine Comment: Wounds 05/28/25 15:38 Consult to Cardiology Routine Comment: Consulting Provider: Celestina Monk Attending Provider on DC: Yosef Dow MD Discharging Provider: Yosef Dow MD DS: Diagnosis Problem List Completed Was Problem List Reviewed/Reconciled?: Yes Hospital Course Hospital Course Hospital course: This is a 89 yom with a h/o HFrEF with EF 40% in 2020, a-fib on digoxin, DVT/PE, on rivaroxaban, Pre DM, and unspecified dementia who presented to the ED on 05/27 via EMS after being found on the floor, weak, and confused by family members. Patient was unable to provide accurate history due to confusion. ED workup was notable for elevated WBC of 13, and an KHOA with multiple electrolyte/metabolic derrangments. Namely, hypomagnesemia, elevated lactate, mild uremia, and mild hyperbilirubinemia. His UA was postive for UTI. CT head negative for stroke but possible acute mastoiditis. Patient was admitted for acute encephalopathy secondary to UTI and metabolic derrangements likely from poor oral intake. Additionally, patient had initial elevation of troponins in the ED, cardiology consulted and patient was diagnosed with NSTEMI type II secondary to the UTI and dehydration. Fluid resuscitation and antibiotics were initiated, troponins downtrended. Patient improved throughout his hospital course but was persistently AxO x1-[address] This is his presumed baseline given his underlying dementia. The diagnosis of mastoiditis was considered early in his hospital course but did not seem to match the patient's clinical picture. He was non-tender in the mastoid processes, had stable mentation, no fever, persistent drop in WBC, and hemodynamically stable after fluid resuscitation. On 05/30, urine grew G+ cocci. Inital plans to DC to SNF on oral antibiotics were made but there was no bed availability at that time. Switched ceftriaxone to augmentin. On 05/31, patient remained clinically stable, was medically cleared for discharge and subsequently discharged to SNF in stable condition. Recommendations: Resume previous medications. Hold your metoprolol and lisinopril until your see your PCP. Complete antibiotic course as prescribed for 2 more days as treatment for your UTI. Discharge diagnoses: #Acute Encephalopathy (resolved) 10/11 #GPC UTI #possible acute Mastoiditis #NSTEMI type II #HFpEF (55-60%) #Atrial fibrillation, rate controlled #Hx DVT/PE #dementia #Pre-diabetes #Normocytic anemia, chronic #Hyperbilirubinemia- #Elevated AST-resolved #Hypernatremia-resolved #KHOA-resolved Patient's plan and care discussed with my attending, Dr Dow, and my senior Dr. Lyubov Torres, DO PGY-1 ([facility] Resident) Time Spent with Patient Time attestation: Total time spent providing and/or coordinating discharge services: Time spent: Greater than 30 minutes Exam Vital Signs Temp Pulse Resp BP Pulse Ox O2 Del Method 97.4 F 83 17 113/78 97 Room Air 05/31/25 08:00 05/31/25 08:00 05/31/25 08:00 05/31/25 08:00 05/31/25 08:00 05/31/25 08:00 Narrative Exam General: Elderly patient, pleasantly demented no acute distress, frail and lean appearing. HEENT: Mucosa moist. Pupils are equal and reactive to light bilaterally Cardiovascular: Normal S1 and S2. normal rate, irregular rhythm. No murmur appreciated Respiratory: Clear to auscultation bilaterally without wheezes or crackles. Abdomen: Soft, nontender, not distended, arteaga sign negative. : Steve in place draining straw yellow fluid. Skin: Dry, no rashes or bruising Musculoskeletal: No gross injuries. Able to move all 4 extremities. Non edematous lower extremities. Neuro: Alert and oriented x1 to self. No focal neuro deficits. Discharge Plan Plan Patient Disposition: Xfer [facility]illed [facility] Fac (SNF) Patient condition on transfer: Stable Care Plan Goals: Resume previous medications. Hold your metoprolol and lisinopril until your see your PCP. Complete antibiotic course as prescribed for 2 more days (4 tab order) as treatment for your UTI. Continue bladder training. Steve catheter may be removed once you have the urge to void under the digression of the [facility]'s MD. Wound Care: 1) Unstageable over sacrum: cleanse with wound cleanser, pat dry, apply calcium alginate over wound bed. Skin prep to wound edges and secure with allyven dressing daily Side to side q2h repositioning except for meals 2) Deep tissue injury over the midline upper back. Blanchable redness to bilateral heels and lateral ankles: cleanse with wound cleanser, swab with skin prep and cover with allyven dressing daily negative heel/foot pressure bilaterally at all times 3) Dry skin tear to left arm: open to air and monitor Prescriptions/Referrals Prescriptions/Med Rec: New amoxicillin-pot clavulanate 875-125 mg tablet 1 tab PO BID 2 Days Qty: 4 0RF Continued atorvastatin 20 mg Tablet 20 mg PO QDAY digoxin 125 mcg (0.125 mg) Tablet 125 mcg PO QDAY memantine 10 mg tablet 10 mg PO BID Xarelto DVT-PE Treat 30d Start 15 mg (42)- 20 mg (9) tablets,dose pack See Rx Instructions .ROUTE .COMPLEX Qty: 51 0RF Rx Instructions: Take one-15 mg tablet twice daily for 21 days, then one-20 mg tablet once daily; must take with meal/food metformin 500 mg tablet 500 mg PO BID Patient Comments: TAKE 1 TABLET BY MOUTH TWICE A DAY Held metoprolol tartrate 50 mg tablet 50 mg PO BID Qty: 60 0RF Hold Instructions: Resume on 06/15/25. Resume after you see your PCP Discontinued metformin 1,000 mg Tablet 500 mg PO BID lisinopril 10 mg tablet 10 mg PO QDAY Qty: 30 0RF Referrals: Luis Hodge MD [Primary Care Provider, Family Practice] Patient/Caregiver Discharge Instructions Other Discharge Activity Instructions:: Resume previous medications. Hold your metoprolol and lisinopril until your see your PCP. Complete antibiotic course as prescribed for 2 more days as treatment for your UTI. Education Materials: Anatomy of the Male Urinary Tract, Urinary Tract Infections in Men Print Language: Jordanian Stand Alone Forms: Marifer Award Info., Patient Portal Info Letter Discharge Order Discharge Orders: Discharge (Routine); Ordered 05/31/25 Ordered By: Cyndi Mcarthur Quality Discharge Quality Measures VTE prophylaxis
[2025-05-31 09:59] VITALS: BP 113/78; PULSE 83
[2025-05-31] MEDS: NAPH,KPH MBDB 1 PACKET (1.5 GM) PO (09:59)
[2025-05-31] MEDS: DIGOXIN 0.125 MG TABLET PO (09:59)
[2025-05-31] MEDS: RIVAROXABAN 10 MG TABLET 20 MG PO (09:59)
[2025-05-31] MEDS: AMOXICILLIN/POT CLAV 875 TABLET 1 TAB PO (09:59)
--- NOTE | 2025-05-31 10:15 | PC.NURSE ---
Notified MD that pt has been bladder training since yesterday and still does not feel the urge to void. Bladder has 340ml per scan. Per MD, pt to discharge with bourne catheter and is to resume bladder training at [facility].
[2025-05-31 11:35] VITALS: BMI 12.0
[2025-05-31 12:00] VITALS: BP 120/66; PULSE 68; PULSE 78; RESP 16; TEMP 36.4; O2SAT 96
== END 2025-05-31 15:37 | disposition skilled nursing facility (03) | DRG 871 ==
LOC: SERX 22:06 → SERHOLD 23:08 → S2NX 05-28 01:15 → S3SX 05-29 09:28
PROVIDERS: Admitting Provider Student in an Organized Health Care Education/Training Program; Emergency Provider Emergency Medicine; PCP Family Medicine; Visit Provider Internal Medicine
DX: A41.9 Sepsis, unspecified organism (principal); G93.41 Metabolic encephalopathy; L89.103 Pressure ulcer of unspecified part of back, stage 3; I21.A1 Myocardial infarction type 2; N39.0 Urinary tract infection, site not specified; N17.9 Acute kidney failure, unspecified; H70.001 Acute mastoiditis without complications, right ear; R17 Unspecified jaundice; E87.0 Hyperosmolality and hypernatremia; E87.20 Acidosis, unspecified; I48.19 Other persistent atrial fibrillation; I50.42 Chronic combined systolic (congestive) and diastolic (congestive) heart failure; R65.20 Severe sepsis without septic shock; I11.0 Hypertensive heart disease with heart failure; I48.91 Unspecified atrial fibrillation; R74.01 Elevation of levels of liver transaminase levels; R73.03 Prediabetes; D64.89 Other specified anemias; Z86.718 Personal history of other venous thrombosis and embolism; E78.00 Pure hypercholesterolemia, unspecified; E83.42 Hypomagnesemia; F03.90 Unspecified dementia, unspecified severity, without behavioral disturbance, psychotic disturbance, mood disturbance, and anxiety; Z79.01 Long term (current) use of anticoagulants; Z79.84 Long term (current) use of oral hypoglycemic drugs; Z79.899 Other long term (current) drug therapy
CPT/HCPCS: 36415; 70450; 80053; 80162; 80307; 80320; 81001; 82140; 82803; 83036; 83605; 83735; 84100; 84145; 84439; 84443; 84484; 85025; 85610; 85730; 87040; 87077; 87086; 87186; 87400; 87811; 92610; 93005; 93225; 93306; 96361; 96365; 96366; 97163; 99285; A4216; A4314; J0696; J1815; J2543; J3374; J3475; J7030; J7050; J7060; A9270; G0480